=== PATIENT | female | born 1955 | race Caucasian/White ===

== ENCOUNTER → 2019-02-12 | Outpatient (CLI) | payer MEDICARE, MEDICAID ==
--- NOTE | 2019-02-12 18:59 | REP ---
MRI RIGHT SHOULDER: TECHNIQUE: Axial T2 fat sat, coronal oblique T1, T2 fat sat, post arthrogram axial T1 fat sat, proton density, coronal oblique T1 fat sat, T2 sat, sagittal oblique T2 fat sat, ABER T1 fat sat. There is scattered ill-defined high signal in supraspinatus tendon compatible with scattered mild tendinopathy. There is a focal partial undersurface tear of the distal end of the supraspinatus tendon. Other rotator cuff tendons are intact. There are mild hypertrophic degenerative changes of the acromioclavicular joint with a type 1 acromion. The biceps tendon is within the bicipital groove with mild surrounding fluid which may represent mild tenosynovitis. No abnormal signal is seen in the deltoid muscle. There appears to be a SLAP tear underlying the biceps labral complex. The adjacent biceps tendon also appears involved. Anterior labrum appears torn with lobulated septated paralabral cyst measuring about 14 x 5 mm. There appears to be a posterior labral tear as well. There is moderate chondromalacia of the glenohumeral joint with mild subchondral marrow edema in the glenoid. There is a mild joint effusion. IMPRESSION: Mild supraspinatus tendinopathy with focal partial undersurface tear of the distal end of the tendon. Mild hypertrophic degenerative changes acromioclavicular joint. Mild fluid surrounding the biceps tendon suggesting mild tenosynovitis. There appears to be a SLAP tear involving the biceps labral complex with the tear also involving the adjacent biceps tendon. There also appear to be anterior and posterior labral tears with an anterior inferior paralabral cyst, oval in shape with lobulated septated appearance. Moderate chondromalacia of the glenohumeral joint. Mild joint effusion. Unreviewed
== END ==
LOC: M RAD 14:31
PROVIDERS: ATTEND Orthopaedic Surgery Hand Surgery
DX: M75.41 Impingement syndrome of right shoulder (principal)

== ENCOUNTER 2019-04-29 10:59 | Day surgery (SDC) | payer MEDICARE, MEDICAID ==
[~2019-04-29] VITALS: Ht 154.9 cm; Wt 74.1 kg
[~2019-04-29 10:59] MED LIST: ACETAMINOPHEN 1000MG 100ML IV BTL (OFIRMEV) (J0131 PER 10MG) As Ordered ONE; AMIT25TA PO; BRONCHW PO; DOCU-129 PO; FERR32TA PO; GABA-845 PO; LEXA1TAB PO; LIDOCAINE 2% INJ 100 MG/5 ML SDV (FOR ANES.) As Ordered ONE; LR 1,000 ML IV ONE; ONDANSETRON 4MG/2ML VIAL (J2405) As Ordered ONE; PHENYLephrine HCL 500 MCG/5 ML (100MCG/ML) SYRINGE (J2370) As Ordered ONE; PRAM0.754 PO; ROCURONIUM BROMIDE 50 MG/5 ML VIAL As Ordered ONE; SUCR1ORA PO; SUGAMMADEX SODIUM 500 MG/5 ML VIAL (BRIDION) As Ordered ONE; VITA500079 PO; VITA500T40 PO; ceFAZolin SOD 2 GM in IV 1 EA IV ONE; dexameTHASONE 4 MG/ML 1ML VIAL (J1100) As Ordered ONE; ePHEDrine SULFATE 25 MG/5 ML(5MG/ML) SYRINGE As Ordered ONE; fentaNYL 250 MCG/5 ML INJECTION (J3010) As Ordered ONE; propofoL 200 MG/20 ML VIAL As Ordered ONE
[2019-04-29] MEDS ORDERED: ROPIvacaine 0.5% 30 ML INJECTION (J2795 PER 1MG) ONE (11:00)
[2019-04-29] MEDS ORDERED: dexameTHASONE 10 MG/1 ML VIAL PRES.FREE (J1100) ONE (11:00)
[2019-04-29] MEDS ORDERED: fentaNYL 100 MCG/2 ML INJECTION (J3010) As Ordered ONE (12:39)
[2019-04-29] MEDS ORDERED: MIDAZOLAM INJ 2 MG/2 ML VIAL (J2250) As Ordered ONE (12:39)
[2019-04-29] MEDS ORDERED: EPINEPHrine 1MG/ML INJ 30ML MD-VIAL As Ordered ONE (12:59)
[2019-04-29] MEDS ORDERED: SCOPOLAMINE 1MG TRANSDERMAL PATCH TOP ONE (13:00)
[2019-04-29] MEDS ORDERED: MIDAZOLAM INJ 2 MG/2 ML VIAL (J2250) IV ONE (13:30)
[2019-04-29] MEDS ORDERED: fentaNYL 100 MCG/2 ML INJECTION (J3010) IV ONE (13:30)
[2019-04-29] MEDS ORDERED: LABETALOL HCL 100 MG/20 ML VIAL As Ordered ONE (15:26)
[2019-04-29] MEDS ORDERED: hydrALAZINE INJ 20 MG/ML VIAL As Ordered ONE (15:43)
[2019-04-29] MEDS ORDERED: hydrALAZINE INJ 20 MG/ML VIAL IV PRN (15:45)
[2019-04-29] MEDS ORDERED: oxyCODONE 5MG TAB PO PRN ×3 (15:45→16:46)
[2019-04-29] MEDS ORDERED: LR 1,000 ML IV SCH (15:45)
[2019-04-29] MEDS ORDERED: ONDANSETRON 4MG/2ML VIAL (J2405) IV PRN (15:45)
[2019-04-29] MEDS ORDERED: fentaNYL 100 MCG/2 ML INJECTION (J3010) IV PRN (15:45)
[2019-04-29 17:15] VITALS: BP 132/65
--- NOTE | 2019-04-29 20:44 | RO ---
DATE OF PROCEDURE: 04/29/2019 PREOPERATIVE DIAGNOSIS: Right SLAP tear, right focal :09 rotator cuff tear and right impingement syndrome. POSTOPERATIVE DIAGNOSIS: Right SLAP tear, right focal rotator cuff tear and right impingement syndrome. In addition severe glenohumeral arthritis. PROCEDURE: Right open biceps tenodesis, arthroscopic rotator cuff repair, distal clavicle excision of approximately 1.1 cm, subacromial decompression and acromioplasty. SURGEON: Gordon Jaffe MD GRAVITY PROSPECTING OBSERVER HELPER: YOVANI Butt, who was essential for suture management and retraction. ANESTHESIA: General. PREOPERATIVE ANTIBIOTICS: 2 grams of Ancef. ESTIMATED BLOOD LOSS: 20 mL COMPLICATIONS: None. INDICATION: 64-year-old female who failed nonoperative modes of treatment. We discussed the risks and benefits of surgical intervention including but not limited to infection, damage to surrounding structures, incomplete relief and patient wished to proceed. DESCRIPTION OF PROCEDURE: Patient was taken back to the OR in supine position, underwent general anesthesia, then was positioned on the beach chair. Right arm was prepped and draped in the usual fashion. We then had a time-out confirming site, side and surgery. Once all in agreement we made a stab incision for the posterior portal. We then entered the glenohumeral joint. At which point we quickly identified the rotator interval and established our anterior portal, confirming with needle first then placing a 7 x 7 Arthrex cannula. At which point, we evaluated the joint. There was a large SLAP type 2 tear. There was stage 4 glenoid and humeral head arthritis along with an extremely synovitic joint and there was anterior leading edge full thickness rotator cuff tear. At this time, we decided to release the biceps tendon from the labral junction. We then debrided the labrum of all fraying edges with a shaver and a burner. We then evaluated the rotator cuff tear and used combination of burner and shaver to prep the rotator cuff tear itself along with the bone on the articular margin. We then entered the subacromial space. At which point we did a subacromial decompression, then used the bur for our acromioplasty of the anterior leading edge of the spur along with distal clavicle excision at the end of the anterior portal which we transferred to the subacromial space. We removed approximately 1.1 cm to allow decompression of the rotator cuff. We then evaluated the tear, debrided it further utilizing a shaver and used a shaver to expose the lateral cortex and prep the bone. At which point we used our punch for medial row 4.75 SwiveLock over the FiberTape. We did not even need to use a mallet , the bone was of such poor quality, once we entered the anchor the anchor was felt to be secure. We then passed the anterior and posterior limb of the tear which I measured to be about 21 cm. Once this was complete, we used the punch for the lateral cortex, once again did not require the use of a mallet in order to make our hole. We then loaded the lateral anchor. Once this was set into the bone, we reduced the tension both anterior and posterior limbs 4.75 SwiveLock. We felt that the cuff would reduce well without any dog ears and that bone had adequate fixation of the anchor. We then removed both the stay sutures, cut the FiberTape suture. At this point we debrided and irrigated the joint thoroughly, removed all bone debris. We then turned our attention to the open portion of the procedure. We made a separate incision on the anterior arm just medial to the cut. We carefully dissected through subcutaneous tissue, paying careful attention to superficial bleeding. We then retracted the pec laterally and superiorly, at which point we exposed the biceps tendon and we then used a combination of a Irina and tenotomies to free the biceps tendon from some adhesions and move the joint. We then used our Arthrex proximal biceps button kit. We used the FiberWire to pass the Jovanny needle and whip stitched the biceps tendon to the musculotendinous junction. We then passed the pin into the cortex using cortical. We loaded our button and then passed the button into the hole. We then secured it and tightened down the tendon. At which point we used a free needle to loop one of the sutures through the tendon itself and tie it down securely. At this point, we irrigated the wound thoroughly, closed with #2-0 Vicryl and all other wounds with #3-0 nylon. Placed a dressing. The patient was awakened and taken to post anesthesia care unit (PACU) in stable condition with a sling. POSTOPERATIVE PLAN: Patient will work on pain control. Will see her in the office in 2 weeks to discuss rehabilitation. She will work on gentle range of motion of her elbow and wrist in the meantime.
== END 2019-04-29 17:20 | disposition home or self-care (01) ==
LOC: M SDC 10:59
PROVIDERS: ATTEND Orthopaedic Surgery Hand Surgery
DX: M75.101 Unspecified rotator cuff tear or rupture of right shoulder, not specified as traumatic (principal); M75.41 Impingement syndrome of right shoulder; G43.909 Migraine, unspecified, not intractable, without status migrainosus; F41.9 Anxiety disorder, unspecified; F32.9 Major depressive disorder, single episode, unspecified; J44.9 Chronic obstructive pulmonary disease, unspecified; K21.9 Gastro-esophageal reflux disease without esophagitis; Z87.891 Personal history of nicotine dependence; Z79.899 Other long term (current) drug therapy; Z88.8 Allergy status to other drugs, medicaments and biological substances; Z91.018 Allergy to other foods
CPT/HCPCS: 23430; 29824; 29826; 29827; C1713; J0131; J0690; J1100; J2250; J2370; J2405; J2795; J3010

== ENCOUNTER 2019-05-26 08:25 | Day surgery (SDC) | payer MEDICARE, MEDICAID ==
[~2019-05-26] VITALS: Ht 154.9 cm; Wt 74.9 kg
[~2019-05-26 08:25] MED LIST changes: -ACETAMINOPHEN 1000MG 100ML IV BTL (OFIRMEV) (J0131 PER 10MG) As Ordered ONE; -LIDOCAINE 2% INJ 100 MG/5 ML SDV (FOR ANES.) As Ordered ONE; -ONDANSETRON 4MG/2ML VIAL (J2405) As Ordered ONE; -PHENYLephrine HCL 500 MCG/5 ML (100MCG/ML) SYRINGE (J2370) As Ordered ONE; -ROCURONIUM BROMIDE 50 MG/5 ML VIAL As Ordered ONE; -SUGAMMADEX SODIUM 500 MG/5 ML VIAL (BRIDION) As Ordered ONE; -dexameTHASONE 4 MG/ML 1ML VIAL (J1100) As Ordered ONE; -ePHEDrine SULFATE 25 MG/5 ML(5MG/ML) SYRINGE As Ordered ONE; -fentaNYL 250 MCG/5 ML INJECTION (J3010) As Ordered ONE; -propofoL 200 MG/20 ML VIAL As Ordered ONE
[2019-05-26] MEDS ORDERED: OXYC1TAB23 PO (08:51)
[2019-05-26] MEDS ORDERED: dexameTHASONE 4 MG/ML 1ML VIAL (J1100) As Ordered ONE (09:06)
[2019-05-26] MEDS ORDERED: LIDOCAINE 2% INJ 100 MG/5 ML SDV (FOR ANES.) As Ordered ONE (09:06)
[2019-05-26] MEDS ORDERED: ONDANSETRON 4MG/2ML VIAL (J2405) As Ordered ONE (09:06)
[2019-05-26] MEDS ORDERED: propofoL 200 MG/20 ML VIAL As Ordered ONE (09:06)
[2019-05-26] MEDS ORDERED: MIDAZOLAM INJ 2 MG/2 ML VIAL (J2250) As Ordered ONE (09:09)
[2019-05-26] MEDS ORDERED: fentaNYL 100 MCG/2 ML INJECTION (J3010) As Ordered ONE (09:10)
[2019-05-26] MEDS ORDERED: SCOPOLAMINE 1MG TRANSDERMAL PATCH TOP ONE (09:30)
[2019-05-26] MEDS ORDERED: METOCLOPRAMIDE INJ 10MG/2ML VIAL (J2765) As Ordered ONE (10:37)
[2019-05-26] MEDS ORDERED: ROCURONIUM BROMIDE 50 MG/5 ML VIAL As Ordered ONE (10:37)
[2019-05-26] MEDS ORDERED: SUGAMMADEX SODIUM 500 MG/5 ML VIAL (BRIDION) As Ordered ONE (11:17)
--- NOTE | 2019-05-26 11:52 | REP ---
Clinical: Retrograde pyelogram. Technique: Two intraoperative fluoroscopic images of the abdomen/pelvis. Findings: Final image demonstrates right ureteral stent in satisfactory appearing position. Total fluoroscopic time 13 seconds. Impression: Status post right ureteral stent placement. Electronically Signed by Rony Vásquez MD 05/26/2019 11:43 A
[2019-05-26] MEDS ORDERED: NORC1TAB7 PO (11:56)
[2019-05-26] MEDS ORDERED: SULF1TAB93 PO (11:56)
[2019-05-26] MEDS ORDERED: PHEN-594 PO (11:56)
[2019-05-26] MEDS ORDERED: fentaNYL 100 MCG/2 ML INJECTION (J3010) IV PRN (12:00)
[2019-05-26] MEDS ORDERED: oxyCODONE 5MG TAB PO PRN (12:00)
[2019-05-26] MEDS ORDERED: LR 1,000 ML IV SCH (12:00)
[2019-05-26] MEDS ORDERED: ONDANSETRON 4MG/2ML VIAL (J2405) IV PRN (12:00)
--- NOTE | 2019-05-26 13:06 | RO ---
DATE OF PROCEDURE: 05/26/2019 PREOPERATIVE DIAGNOSIS: Right renal stones. POSTOPERATIVE DIAGNOSIS: Right renal stones. PROCEDURE PERFORMED: Right ureteroscopy with laser dusting of stones and stent placement. SURGEON: Sha Hensley MD MARKETING OPERATIONS MANAGER: ANESTHESIA: General. INDICATION: This 64-year-old lady presented with symptomatic right renal stones. She has a past history of gastrointestinal (GI) bypass surgery and has had many episodes of stones. The stones have been resistant to eswl in the past. She has required multiple ureteroscopic procedures. She does actually have bilateral stones on CT scan, but the largest stone volume is on the right on which side she is also symptomatic. DESCRIPTION OF PROCEDURE: After obtaining informed consent from the patient, she was taken to the operating room, where after induction of adequate anesthetic, she was prepped and draped in the usual manner. The 22-English diagnostic cystoscope was advanced into the bladder and the bladder inspected. No stones or abnormalities were noted. The ureteral orifices were in orthotopic position. A wire was negotiated to the right kidney under fluoroscopic control. We attempted to pass the 12/14 ureteral access sheath. This would not pass. The obturator also would not readily pass beyond the midureter. We discontinued this attempt and thereafter passed the Olympus flexible ureterorenoscope without difficulty to the kidney. The calices in renal pelvis all carefully inspected. Two large stones were noted within the right renal pelvis. We used the 272-micron Holmium laser fiber and fragmented the stones into sand-sized pieces. After dusting the stones thoroughly, we carefully reinspected all calices in the renal pelvis. No significant injuries were noted. No significant remaining fragments were noted. The ureter was then inspected carefully, and no significant ureteral injury was noted. We re-passed the safety guidewire and positioned a 6-English Hilbert stent over the wire fluoroscopically in the kidney and bladder with the string left attached. Distal stent position confirmed endoscopically. The procedure was concluded and the patient taken to recovery in satisfactory condition. COMPLICATIONS: None. BLOOD LOSS: Less than 20 mL. DISPOSITION: The patient is dismissed home on [place] 5, #15, Septra DS on by mouth nightly, Pyridium 200 three times a day as needed dysuria. Followup to be in 1 week for stent removal with string. Diet as tolerated. Activity light. MTDD
[2019-05-26 14:45] VITALS: BP 136/72
== END 2019-05-26 15:00 | disposition home or self-care (01) ==
LOC: M SDC 08:25
PROVIDERS: ATTEND Urology
DX: N20.0 Calculus of kidney (principal); G47.33 Obstructive sleep apnea (adult) (pediatric); K21.9 Gastro-esophageal reflux disease without esophagitis; R94.31 Abnormal electrocardiogram [ECG] [EKG]; M19.90 Unspecified osteoarthritis, unspecified site; J67.0 Farmer's lung; Z98.890 Other specified postprocedural states; F41.9 Anxiety disorder, unspecified; F32.9 Major depressive disorder, single episode, unspecified; Z98.84 Bariatric surgery status; Z88.8 Allergy status to other drugs, medicaments and biological substances; Z91.018 Allergy to other foods; Z79.899 Other long term (current) drug therapy; Z79.891 Long term (current) use of opiate analgesic
CPT/HCPCS: 52356; 74420; C1769; C1894; C2617; J0690; J1100; J2250; J2405; J2765; J3010

== ENCOUNTER 2019-05-31 23:18 | Inpatient (IN) | payer MEDICARE, MEDICAID ==
[~2019-05-31] VITALS: Ht 154.9 cm; Wt 74.6 kg
[~2019-05-31 23:18] MED LIST changes: -LR 1,000 ML IV ONE; +NORC1TAB7 PO; +OXYC1TAB23 PO; +PHEN-594 PO; +SULF1TAB93 PO; -ceFAZolin SOD 2 GM in IV 1 EA IV ONE
[2019-06-01] MEDS ORDERED: MOM 30ML SUSPENSION UDC PO PRN (06:45)
[2019-06-01] MEDS ORDERED: ACETAMINOPHEN TAB 650MG DOSE (2X325MG) PO PRN (06:45)
[2019-06-01] MEDS ORDERED: MAALOX 30 ML SUSP *UDC PO PRN (06:45)
[2019-06-01 07:00] VITALS: BP 124/67
[2019-06-01] MEDS ORDERED: BACT800T5 PO (08:08)
[2019-06-01] MEDS ORDERED: PHEN-594 PO (08:08)
[2019-06-01] MEDS ORDERED: SUCR1TAB56 PO (08:08)
[2019-06-01] MEDS ORDERED: MIRA0.12 PO (08:08)
[2019-06-01] MEDS ORDERED: GABA-1171 PO (08:08)
[2019-06-01] MEDS ORDERED: LEVO1INJ27 IV (08:11)
[2019-06-01 08:22] LABS: ALBUMIN 2.7 GM/DL (3.2-5.2); ALT/SGPT 15 U/L (12-78); BILIRUBIN,TOTAL 0.3 MG/DL (0.2-1.0); BLOOD UREA NITROGEN 10 MG/DL (7-18); CARBON DIOXIDE LEVEL 21 MEQ/L (21-32); CHLORIDE LEVEL 112 MEQ/L (98-107); CREATININE FOR GFR 0.64 MG/DL (0.55-1.30); GLOMERULAR FILTRATION RATE > 60.0 (>45); GLUCOSE, FASTING 89 MG/DL (70-100); MAGNESIUM LEVEL 2.1 MG/DL (1.8-2.4); POTASSIUM SERUM 4.3 MEQ/L (3.5-5.1); SODIUM LEVEL 141 MEQ/L (136-145); TOTAL PROTEIN 6.1 GM/DL (6.4-8.2)
[2019-06-01] MEDS ORDERED: PERCOCET 5MG/325MG TAB PO PRN (08:45)
[2019-06-01] MEDS ORDERED: cefTRIAXone SOD 1 GM in D5W MINI-BAG PLUS 50 ML IV SCH (09:00)
[2019-06-01] MEDS ORDERED: DOCUSATE SODIUM 100 MG CAP PO SCH ×2 (09:00→21:00)
[2019-06-01] MEDS: MULTIVITAMINS/MINERALS THERAP 1 TAB PO SCH (09:54)
[2019-06-01] MEDS: GABAPENTIN 100 MG CAP PO SCH ×2 (09:54→20:32)
[2019-06-01] MEDS: VITAMIN D 1,000 INTERNATIONAL UNITS TABLET PO SCH (09:54)
[2019-06-01] MEDS: SUCRALFATE 1 GM TAB PO SCH ×2 (09:55→20:33)
[2019-06-01] MEDS: CYANOCOBALAMIN 500 MCG TAB PO SCH (09:55)
[2019-06-01] MEDS: FERROUS GLUCONATE 324 MG TAB PO SCH (09:55)
[2019-06-01] MEDS: ESCITALOPRAM OXALATE 10 MG TAB (LEXAPRO) PO SCH (09:55)
[2019-06-01] MEDS ORDERED: HYDROMORPHONE HCL 0.5 MG/ 0.5 ML SYRINGE (J1170 PER 1) IV PRN ×2 (10:15)
[2019-06-01 10:39] LABS: BASO # 0.1 10^3/uL (0.0-0.2); BASO % 0.7 % (0.0-1.0); EOS # 0.2 10^3/uL (0.0-0.5); EOS % 2.8 % (0.0-3.0); HEMATOCRIT 36.6 % (36.0-47.0); HEMOGLOBIN 11.8 g/dl (12.0-15.5); LYMPH # 2.1 10^3/uL (1.5-5.0); LYMPH % 28.2 % (24.0-44.0); MEAN CORPUSCULAR HEMOGLOBIN 30.9 pg (27.0-33.0); MEAN CORPUSCULAR HGB CONC 32.2 g/dl (32.0-36.5); MEAN CORPUSCULAR VOLUME 95.8 fl (80.0-96.0); MONO # 0.6 10^3/uL (0.0-0.8); MONO % 8.1 % (0.0-5.0); NEUTROPHILS # 4.5 10^3/uL (1.5-8.5); NEUTROPHILS % 59.9 % (36.0-66.0); PLATELET COUNT, AUTOMATED 275 10^3/uL (150-450); RED BLOOD COUNT 3.82 10^6/uL (4.00-5.40); WHITE BLOOD COUNT 7.5 10^3/uL (4.0-10.0)
--- NOTE | 2019-06-01 10:54 | HPEPDOC ---
General Date of Admission Jun 01, 2019 at 06:34 Date of Service: Jun 01, 2019 Chief Complaint The patient is a 64-year-old female Who was transferred from outside facility after she had reported right abdominal discomfort and possible displacement of her right ureteral stent History of Present Illness Patient is a 74-year-old female with a PMHx of [place] lung, GERD, Nephrolithiasis s/p R ureteral stent (05/25), Anxiety and Depression who presented to the [facility] as a direct admission from outside facility. Patient reported that yesterday 05/30, afternoon she began to experience right- sided abdominal pain and may have unintentionally hold out her right ureteral stent via string. Patient was reporting excruciating pain and to the ER for further evaluation. Patient had received Dilaudid for pain control while there, as well as CT imaging. Patient was ultimately transferred to [facility] for evaluation by urology. Currently patient denies any chest pain, shortness of breath, palpitations, nausea, vomiting, any active abdominal pain at this time, diarrhea, or urinary discomfort. She denies any fevers or chills over the last 2 days. Patient reports that her appetite is fair. Denies any significant changes in her weight. Home Medications Scheduled Amitriptyline HCl (Amitriptyline HCl) 25 Mg Tablet, 25 MG PO QHS, (Reported) Cholecalciferol (Vitamin D3) (Vitamin D3) 5,000 Unit Tab.rapdis, 5,000 UNIT PO DAILY, (Reported) Cyanocobalamin (Vitamin B-12) (Vitamin B-12) 500 Mcg Tablet, 500 MCG PO DAILY, (Reported) Docusate Sodium (Stool Softener) 100 Mg Capsule, 200 MG PO QHS, (Reported) Escitalopram Oxalate (Lexapro) 10 Mg Tablet, 10 MG PO DAILY, (Reported) Ferrous Gluconate (Ferrous Gluconate) 324 Mg Tablet, 324 MG PO DAILY, (Reported) Gabapentin (Gabapentin) 100 Mg Capsule, 100 MG PO BID, (Reported) Levofloxacin in Dextrose 5 % (Levofloxacin 750 mg/150 ml-D5w) 750 Mg/150 Ml Piggyback, 750 MG IV ONCE, (Reported) RECEIVED AT [facility] Multivitamin (Chewable-Pierce) 1 Each Tab.chew, 1 CHW PO DAILY, (Reported) Pramipexole Di-HCl (Mirapex) 0.125 Mg Tablet, 0.125 MG PO QHS, (Reported) Sucralfate (Sucralfate) 1 Gm Tablet, 1 GM PO BID, (Reported) Sulfamethoxazole/Trimethoprim (Bactrim Ds Tablet) 1 Each Tablet, 1 TAB PO DAILY, (Reported) FILLED 05/26/19 FOR 7 DAYS Scheduled PRN Oxycodone HCl/Acetaminophen (Oxycodone-Acetaminophen 5-325) 1 Each Tablet, 1 TAB PO Q6H PRN for PAIN, (Reported) Phenazopyridine HCl (Phenazopyridine HCl) 200 Mg Tablet, 200 MG PO TID PRN for BLADDER SPASM, (Reported) Allergies Coded Allergies: fluoxetine (Verified Allergy, Intermediate, rash, itching, 05/26/19) tomato (Verified Allergy, Intermediate, TOMATO SEEDS - HIVES, 05/26/19) Past Medical History Medical History Lingle lung, GERD, Nephrolithiasis s/p R ureteral stent (05/25), Anxiety and Depression Surgical History Gastric bypass R wrist / arm fracture s/p ORIF Carpal tunnel release surgery balateraly Lung biopsy Right knee surgery x 2 Kidney stone Family History - Mother with a history of heart problems - Father with history of lung cancer and bone cancer Social History - Denies the use of illicit drugs; quit smoking 25 years ago, but smnoker of 30 years at 1 ppd, reports social alcohol use - Denies recent travel or sick contacts - Lives with boyfriend - Occupation; patient works on the farm Review of Systems Other systems 10 point review of systems complete, all negative otherwise stated in HPI Vital Signs - Vitals: BP 124/67, HR 90, RR 17, Sat 91%RA, Temp 98.6F - General: Lying in bed, No acute distress, Speaking in full sentences, AAOx3 - HEENT: NC, AT, PERRLA - CVS: RRR, +S1S2 - Lungs: Fair air entry bilaterally, No appreciable wheezing / rales / rhonchi - Abdomen: Soft, Non-distended, Right flank tenderness - Extremities: No lower extremity edema, No calf tenderness - Neuro: No focal motor or sensory deficit - Skin: No visible rashes Laboratory Data Labs 24H Laboratory Tests 2 06/01/19 07:44: Anion Gap 8, Glomerular Filtration Rate > 60.0, Lactic Acid Level 0.9, Calcium Level 8.0L, Magnesium Level 2.1, Total Bilirubin 0.3, Aspartate Amino Transf (A ST/SGOT) 14, Alanine Aminotransferase (ALT/SGPT) 15, Alkaline Phosphatase 69, Total Protein 6.1L, Albumin 2.7L, Albumin/Globulin Ratio 0.79L 06/01/19 10:27: Immature Granulocyte % (Auto) 0.3, Neutrophils (%) (Auto) 59.9, Lymphocytes (%) (Auto) 28.2, Monocytes (%) (Auto) 8.1H, Eosinophils (%) (Auto) 2.8, Basophils (%) (Auto) 0.7, Neutrophils # (Auto) 4.5, Lymphocytes # (Auto) 2.1, Monocytes # (Auto) 0.6, Eosinophils # (Auto) 0.2, Basophils # (Auto) 0.1, Nucleated Red Blood Cells % (auto) 0.0 CBC/BMP Laboratory Tests 06/01/19 07:44 06/01/19 10:27 Microbiology Microbiology 06/01/19 Blood Culture, Received Pending 06/01/19 Blood Culture, Received Pending Plan / VTE VTE Prophylaxis Ordered?: Yes Plan Plan Right-sided abdominal pain - likely 2/2 dislodged R ureteral stent - Patient was transferred from outside facility after she had unintentionally dislodged her right ureteral stent - Currently, patient does report some right-sided flank pain. Physical does reveal right flank tenderness - Hemodynamically stable and afebrile - No lactic acidosis; CBC pending - Will get ultrasound to evaluate for hydronephrosis - Urine cultures and blood cultures were collected at outside facility - c/w Ceftriaxone (Day #2) - c/w pain control PRN with diluadid - Called urology on consultation; case has been discussed and will evaluate at bedside today Lingle lung - No evidence of exacerbation Nephrolithiasis - s/p R ureteral stent (05/25) - See above Anxiety and Depression - c/w Amitriptyline and Escitalopram Gastric bypass with Vitamin deficiency - c/w Vitamin D, B12, Multivitamin supplementation RLS - c/w Pramipexole Neuropathy - c/w Gabapentin GERD - c/w Carafate DVT prophylaxis - Will start Heparin DAVID ZULUAGA MD Jun 01, 2019 10:54
[2019-06-01] MEDS ORDERED: D5W/0.45% SODIUM CHLORIDE 1,000 ML IV SCH (11:45)
--- NOTE | 2019-06-01 12:47 | ECGEPIP ---
[facility] Test Date: 2019-06-01 Pat Name: RADHA MONTIEL Department: Room: [place] [address] Gender: Female Food Safety Manager: JACKIE : 1955 Requested By: DAVID ZULUAGA Order Number: [id number] Reading MD: Isai Anglin Measurements Intervals [place] Rate: 73 P: 52 SD: 156 QRS: -29 QRSD: 144 T: 12 QT: 430 QTc: 476 Interpretive Statements SINUS RHYTHM LEFT BUNDLE BRANCH BLOCK NO PRIOR TRACING IN THE SYSTEM Electronically Signed on 06-01-2019 12:47:27 EDT by Isai Anglin
--- NOTE | 2019-06-01 13:59 | SMCUROLCON ---
Urology Consultation General Date of Consultation 06/01/19 Reason For Consultation This patient is seen for Uti, Dislodged Nephrostomy Tube. History of Present Illness This is a 64 y/o F w/ a PMH significant for [place] lung, GERD, and nephrolithiasis s/p R ureteroscopy w/ laser lithotripsy and R stent placement on 05/26/19, admitted to the hospital for worsening R flank pain after inadvertently pulling her stent out yesterday. She notes that she accidentally pulled on the string of her stent earlier in the day yesterday and when she subsequently voided, the entire stent came out. After that she began having intolerable R flank pain which prompted her to go [facility] ER. There they were unable to control her pain w/ PO pain medication. She was therefore transferred to [facility] for further care and possible urologic care. She notes that she still has significant pain at this time and just received a dose of dilaudid for this. She has had mild nausea, but no vomiting. She denies dysuria. She denies fevers or chills. Past Medical History Medical History see HPI Surgical Hstory gastric bypass R knee surgeries x2 R rotator cuff b/l carpal tunnel surgery several kidney stone surgeries Medications Current Medications Current Medications Medications (Trade) Dose Ordered Sig/Cassandra Route PRN Reason Start Time Stop Time Status Last Admin Dose Admin Acetaminophen (Tylenol Tab) 650 mg Q4H PRN PO PAIN OR FEVER 06/01/19 06:45 Al Hydrox/Mg Hydrox/Simethicone (Mylanta) 30 ml DAILY PRN PO DYSPEPSIA 06/01/19 06:45 Amitriptyline HCl (Elavil) 25 mg QHS PO 06/01/19 21:00 Ceftriaxone Sodium 1 gm/ Dextrose 50 ml @ 100 mls/hr Q24H IV 06/01/19 09:00 06/01/19 09:55 Cyanocobalamin (Vitamin B12) 500 mcg DAILY PO 06/01/19 09:00 06/01/19 09:55 Dextrose/Sodium Chloride 1,000 ml @ 60 mls/hr [id number] IV 06/01/19 11:45 06/01/19 12:36 Docusate Sodium (Colace) 100 mg BID PO 06/01/19 09:00 06/01/19 08:33 DC Docusate Sodium (Colace) 200 mg QHS PO 06/01/19 21:00 Escitalopram Oxalate (Lexapro) 10 mg DAILY PO 06/01/19 09:00 06/01/19 09:55 Ferrous Gluconate (Fergon) 324 mg DAILY PO 06/01/19 09:00 06/01/19 09:55 Gabapentin (Neurontin) 100 mg BID PO 06/01/19 09:00 06/01/19 09:54 Heparin Sodium (Porcine) (Heparin) 5,000 units Q8H SQ 06/01/19 14:00 Home Med (Med Rec Complete!) ASDIRECTED XX 06/01/19 08:15 06/01/19 08:33 DC Hydromorphone HCl (Dilaudid) 0.2 mg Q3HP PRN IV MILD PAIN (PS 1-4) 06/01/19 10:15 Hydromorphone HCl (Dilaudid) 0.4 mg Q3HP PRN IV MODERATE PAIN (PS 5-7) 06/01/19 10:15 06/01/19 10:33 Ketorolac Tromethamine (ToRADol) 15 mg Q6H IV 06/01/19 13:45 06/06/19 13:44 UNV Magnesium Hydroxide (Milk Of Magnesia) 30 ml DAILY PRN PO CONSTIPATION 06/01/19 06:45 Multivitamins (Theragram-M) 1 tab DAILY PO 06/01/19 09:00 06/01/19 09:54 Oxycodone/ Acetaminophen (Percocet 5mg/ 325mg Tablet) 1 tab Q6H PRN PO PAIN 06/01/19 08:45 06/01/19 08:48 Pramipexole Dihydrochloride (Mirapex) 0.125 mg QHS PO 06/01/19 21:00 Sucralfate (Carafate) 1 gm BID PO 06/01/19 09:00 06/01/19 09:55 Tamsulosin HCl (Flomax) 0.4 mg DAILY PO 06/01/19 13:45 UNV Vitamin D (Vitamin D) 5,000 units DAILY PO 06/01/19 09:00 06/01/19 09:54 Allergies Allergies: Coded Allergies: fluoxetine (Verified Allergy, Intermediate, rash, itching, 05/26/19) tomato (Verified Allergy, Intermediate, TOMATO SEEDS - HIVES, 05/26/19) Review of Systems Constitutional: Denies: Fever, Chills, Sweats Skin: Denies: Rash, Lesions, Breakdown, Nail Changes Pulmonary: Denies: Dyspnea, Cough Cardiovascular: Denies Chest Pain, Denies Palpitations Gastrointestinal: Reports: Abdominal Pain (R lower abd pain) Genitourinary: Reports: Incontinence; Denies: Dysuria, Hematuria Musculoskeletal: Reports: Back Pain (R flank pain) Neurological: Reports: Weakness, Numbness Psych: Reports: Mood Normal Physical Examination General Exam: Alert, Cooperative, No Acute Distress Chest Exam: Normal air movement Heart Exam: Rate Normal Abdomen Exam: Soft, Tenderness (mild to moderate RLQ) Skin Exam: Nl turgor and temperature Neuro Exam: Normal Speech Psych Exam: Mental status NL, Mood NL Vital Signs/I&O Vital Signs Date Time Temp Pulse Resp B/P (MAP) Pulse Ox O2 Delivery O2 Flow Rate FiO2 06/01/19 10:45 20 Room Air 06/01/19 07:00 98.6 90 124/67 (86) 91 Laboratory Data 24H Labs Laboratory Tests 2 06/01/19 07:44: Anion Gap 8, Glomerular Filtration Rate > 60.0, Lactic Acid Level 0.9, Calcium Level 8.0L, Magnesium Level 2.1, Total Bilirubin 0.3, Aspartate Amino Transf (AST/SGOT) 14, Alanine Aminotransferase (ALT/SGPT) 15, Alkaline Phosphatase 69, Total Protein 6.1L, Albumin 2.7L, Albumin/Globulin Ratio 0.79L 06/01/19 10:27: Immature Granulocyte % (Auto) 0.3, Neutrophils (%) (Auto) 59.9, Lymphocytes (%) (Auto) 28.2, Monocytes (%) (Auto) 8.1H, Eosinophils (%) (Auto) 2.8, Basophils (%) (Auto) 0.7, Neutrophils # (Auto) 4.5, Lymphocytes # (Auto) 2.1, Monocytes # (Auto) 0.6, Eosinophils # (Auto) 0.2, Basophils # (Auto) 0.1, Nucleated Red Blood Cells % (auto) 0.0 CBC/BMP Laboratory Tests 06/01/19 07:44 06/01/19 10:27 Microbiology Microbiology 06/01/19 Blood Culture, Received Pending 06/01/19 Blood Culture, Received Pending Assessment This is a 64 y/o F who is s/p a R ureteroscopy w/ laser lithotripsy and R stent placement on 05/26/19, admitted to the hospital for intolerable R flank pain after inadvertently pulling her stent out yesterday. I reviewed her CT A/P. It was notable for small stone debris in the R kidney and in the distal ureter as well as moderate R hydroureteronephrosis down to the level of the bladder. The tiny stones in the distal R ureter do not appear to be the source of obstruction. The hydro is therefore likely due to ureteral edema from her recent surgery. I reassured the patient and explained that this will resolve and her pain will improve when this happens. Her urine culture from [facility] was also reviewed and it resulted w/ no growth. Plan - start scheduled toradol to help w/ pain and inflammation - start flomax - rocephin d/c'd since urine culture was negative - ok for regular diet - no plan for surgery as I anticipate the hydro will improve as the R ureteral edema resolves - will follow ALYSSA CHAPMAN MD Jun 01, 2019 13:59
[2019-06-01 14:00] VITALS: BP 129/71
[2019-06-01] MEDS: KETOROLAC 30 MG/ML VIAL (J1885) IV SCH ×2 (14:31→20:32)
[2019-06-01] MEDS: HEPARIN SOD (PORCINE) 5000 UNITS/ML VIAL (J1644 PER 1000UNITS) SQ SCH ×2 (14:31→22:08)
[2019-06-01] MEDS: TAMSULOSIN 0.4 MG CAP PO SCH (14:37)
[2019-06-01] MEDS ORDERED: AMITRIPTYLINE 25 MG TAB PO SCH (21:00)
[2019-06-01] MEDS ORDERED: PRAMIPEXOLE (MIRAPEX) 0.125 MG TAB PO SCH (21:00)
[2019-06-01 22:00] VITALS: BP 124/68
[2019-06-02] MEDS: KETOROLAC 30 MG/ML VIAL (J1885) IV SCH ×2 (02:22→07:58)
[2019-06-02] MEDS: HEPARIN SOD (PORCINE) 5000 UNITS/ML VIAL (J1644 PER 1000UNITS) SQ SCH (05:45)
[2019-06-02 06:00] VITALS: BP 126/69
[2019-06-02 06:08] LABS: BASO # 0.1 10^3/uL (0.0-0.2); EOS # 0.3 10^3/uL (0.0-0.5); HEMATOCRIT 34.4 % (36.0-47.0); LYMPH # 2.1 10^3/uL (1.5-5.0); LYMPH % 42.3 % (24.0-44.0); MEAN CORPUSCULAR HEMOGLOBIN 30.6 pg (27.0-33.0); MEAN CORPUSCULAR VOLUME 95.8 fl (80.0-96.0); MONO # 0.4 10^3/uL (0.0-0.8); MONO % 7.8 % (0.0-5.0); NEUTROPHILS % 41.7 % (36.0-66.0); PLATELET COUNT, AUTOMATED 251 10^3/uL (150-450); RED BLOOD COUNT 3.59 10^6/uL (4.00-5.40); WHITE BLOOD COUNT 4.9 10^3/uL (4.0-10.0)
[2019-06-02 06:25] LABS: BLOOD UREA NITROGEN 14 MG/DL (7-18); CALCIUM LEVEL 8.1 MG/DL (8.8-10.2); CARBON DIOXIDE LEVEL 26 MEQ/L (21-32); CHLORIDE LEVEL 109 MEQ/L (98-107); CREATININE FOR GFR 0.68 MG/DL (0.55-1.30); GLOMERULAR FILTRATION RATE > 60.0 (>45); GLUCOSE, FASTING 82 MG/DL (70-100); MAGNESIUM LEVEL 2.2 MG/DL (1.8-2.4); POTASSIUM SERUM 3.8 MEQ/L (3.5-5.1); SODIUM LEVEL 141 MEQ/L (136-145)
--- NOTE | 2019-06-02 07:25 | REP ---
Clinical: Displaced renal stent. Technique: Real time okeefe scale ultrasound examination using curved array transducer. Findings: The right kidney is normal in contour, size, parenchymal echogenicity and reniform shape measuring 11.6 x 4.6 x 5.4 cm with evidence for hydroureteronephrosis and nephrolithiasis. No right ureteral stent is identified. Bladder is collapsed and without evidence for stent. Left kidney is normal in contour, size, parenchymal echogenicity and reniform shape measuring 10.4 x 4.9 x 4.4 cm with nonobstructing intrarenal calculi measuring up to 5 mm and no evidence for hydroureteronephrosis. Impression: 1. Right kidney demonstrates hydroureteronephrosis and intrarenal calculi without evidence for stent. 2. Left kidney demonstrates nephrolithiasis without hydronephrosis. Electronically Signed by Rony Vásquez MD 06/01/2019 09:25 A
[2019-06-02] MEDS: CYANOCOBALAMIN 500 MCG TAB PO SCH (07:58)
[2019-06-02] MEDS: FERROUS GLUCONATE 324 MG TAB PO SCH (07:58)
[2019-06-02] MEDS: VITAMIN D 1,000 INTERNATIONAL UNITS TABLET PO SCH (07:58)
[2019-06-02] MEDS: SUCRALFATE 1 GM TAB PO SCH (07:58)
[2019-06-02] MEDS: TAMSULOSIN 0.4 MG CAP PO SCH (07:59)
[2019-06-02] MEDS: ESCITALOPRAM OXALATE 10 MG TAB (LEXAPRO) PO SCH (07:59)
[2019-06-02] MEDS: MULTIVITAMINS/MINERALS THERAP 1 TAB PO SCH (07:59)
[2019-06-02] MEDS: GABAPENTIN 100 MG CAP PO SCH (07:59)
[2019-06-02] MEDS ORDERED: KETO10TAB PO (08:01)
[2019-06-02] MEDS ORDERED: FLOM0.4C39 PO (08:01)
--- NOTE | 2019-06-02 09:27 | IPNPDOC ---
Subjective Review oF Systems Chief Complaint The patient is a 64-year-old female admitted with a reason for visit of Uti, Dislodged Nephrostomy Tube. Events since Last Encounter No acute events o/n. Patient notes her flank pain is much better. She has not required any narcotics since starting toradol. No n/v. No f/c/ns. Objective Physical Examination General Exam: Alert, Cooperative ABDOMEN EXAM: BS Hypoactive, Soft, Mass; No: Tenderness Skin Exam: Nl turgor and temperature Neuro Exam: Normal Speech Psych Exam: Mental status NL, Mood NL Vital Signs/I&O Vital Signs Date Time Temp Pulse Resp B/P (MAP) Pulse Ox O2 Delivery O2 Flow Rate FiO2 06/02/19 06:00 96.8 72 15 126/69 (88) 93 Room Air I&O- Last 24 Hours up to 6 AM 06/02/19 06:00 Intake Total 780 ml Output Total 750 ml Balance 30 ml Laboratory Data Labs 24H Laboratory Tests 2 06/01/19 10:27: Immature Granulocyte % (Auto) 0.3, Neutrophils (%) (Auto) 59.9, Lymphocytes (%) (Auto) 28.2, Monocytes (%) (Auto) 8.1H, Eosinophils (%) (Auto) 2.8, Basophils (%) (Auto) 0.7, Neutrophils # (Auto) 4.5, Lymphocytes # (Auto) 2.1, Monocytes # (Auto) 0.6, Eosinophils # (Auto) 0.2, Basophils # (Auto) 0.1, Nucleated Red Blood Cells % (auto) 0.0 06/02/19 05:52: Immature Granulocyte % (Auto) 0.2, Neutrophils (%) (Auto) 41.7, Lymphocytes (%) (Auto) 42.3, Monocytes (%) (Auto) 7.8H, Eosinophils (%) (Auto) 7.0H, Basophils (%) (Auto) 1.0, Neutrophils # (Auto) 2.0, Lymphocytes # (Auto) 2.1, Monocytes # (Auto) 0.4, Eosinophils # (Auto) 0.3, Basophils # (Auto) 0.1, Nucleated Red Blood Cells % (auto) 0.0, Anion Gap 6L, Glomerular Filtration Rate > 60.0, Calcium Level 8.1L, Magnesium Level 2.2 CBC/BMP Laboratory Tests 06/01/19 10:27 06/02/19 05:52 Microbiology Microbiology 06/01/19 Blood Culture, Received Pending 06/01/19 Blood Culture - Preliminary, Resulted No growth after 24 hours . All specim... Assessment/Plan Date Seen The patient was seen on 06/02/19. Patient Summary This is a 64 y/o F who is s/p a R ureteroscopy w/ laser lithotripsy and R stent placement on 05/26/19, admitted to the hospital for intolerable R flank pain after inadvertently pulling her stent out on Sunday. She is doing much better this morning w/ minimal pain. Plan/VTE VTE Prophylaxis Ordered?: Yes VTE Exclusion Mechanical Proph: N/A:VTE Prophy Ordered VTE Exclusion Pharmacological: N/A:VTE Prophy Ordered Plan - ok for discharge home - would give toradol to take prn (she can take this in addition to the norco she has at home prn) - recommend she stay on flomax 0.4mg qd for at least 2 wks - my office will call to reschedule her f/u ALYSSA CHAPMAN MD Jun 02, 2019 09:27
--- NOTE | 2019-06-02 09:30 | DS.PDOC ---
Discharge Summary General Date of Admission Jun 01, 2019 at 06:34 Date of Discharge 06/02/2019 Discharge Summary PROCEDURES PERFORMED DURING STAY: [None]. ADMITTING DIAGNOSES / DISCHARGE DIAGNOSES: Right-sided abdominal pain - likely 2/2 dislodged R ureteral stent Liver hypodensity [place] lung Nephrolithiasis Anxiety and Depression Gastric bypass with Vitamin deficiency RLS Neuropathy GERD DVT prophylaxis COMPLICATIONS/CHIEF COMPLAINT: Transferred from [place] for dislodged right ureteral stent HISTORY OF PRESENT ILLNESS: Patient is a 74-year-old female with a PMHx of [place] lung, GERD, Nephrolithiasis s/p R ureteral stent (05/25), Anxiety and Depression who presented to the [facility] as a direct admission from outside facility. Patient reported that yesterday 05/30, afternoon she began to experience right- sided abdominal pain and may have unintentionally hold out her right ureteral stent via string. Patient was reporting excruciating pain and to the ER for further evaluation. Patient had received Dilaudid for pain control while there, as well as CT imaging. Patient was ultimately transferred to [facility] for evaluation by urology. HOSPITAL COURSE: Right-sided abdominal pain - likely 2/2 dislodged R ureteral stent - Patient was transferred from outside facility after she had unintentionally dislodged her right ureteral stent - Currently has been tolerating a diet, no nausea / vomiting, pain controlled - Remains hemodynamically stable and afebrile - No lactic acidosis; No leukocytosis - CT scan appreciated - Renal US 06/01: 1. Right kidney demonstrates hydroureteronephrosis and intrarenal calculi without evidence for stent. 2. Left kidney demonstrates nephrolithiasis without hydronephrosis. - Urine cultures have been reported negative at [place] - s/p Ceftriaxone (3 day course ) - c/w pain contro; with Ketoralac - Urology on consultation; appreciate their input Liver hypodensity - CT scan noted - Results of CT scan have been informed to the patient; verbalized understanding - Will have outpatient follow up with PCP within 7 days. [place] lung - No evidence of exacerbation Nephrolithiasis - s/p R ureteral stent (05/25) - See above Anxiety and Depression - c/w Amitriptyline and Escitalopram Gastric bypass with Vitamin deficiency - c/w Vitamin D, B12, Multivitamin supplementation RLS - c/w Pramipexole Neuropathy - c/w Gabapentin GERD - c/w Carafate DVT prophylaxis - c/w Heparin DISCHARGE MEDICATIONS: Please see below. ALLERGIES: Please see below. PHYSICAL EXAMINATION ON DISCHARGE: Vitals (See below) General: Lying in bed, no acute distress, comfortable, AAOx3 HEENT: NC, AT CVS: +S1S2 Lungs: Fair air entry b/l, no rhonchi / crackles / wheezing Abdomen: Soft, Non-distended, non-tender Extremities: - Edema, - Calf tenderness LABORATORY DATA: Please see below. ACTIVITY: [As tolerated]. DISCHARGE PLAN: Follow up with Dr. Michel Bray and Dr. Ashley within 7 days Remain compliant with treatment plan and medications Return to the ER if you experience any problems DISPOSITION: Home DISCHARGE CONDITION: [Stable]. TIME SPENT ON DISCHARGE: 35 minutes Vital Signs/I&Os Vital Signs Date Time Temp Pulse Resp B/P (MAP) Pulse Ox O2 Delivery O2 Flow Rate FiO2 06/02/19 06:00 96.8 72 15 126/69 (88) 93 Room Air I&O- Last 24 Hours up to 6 AM 06/02/19 06:00 Intake Total 780 ml Output Total 750 ml Balance 30 ml Laboratory Data Labs 24H Laboratory Tests 2 06/01/19 10:27: Immature Granulocyte % (Auto) 0.3, Neutrophils (%) (Auto) 59.9, Lymphocytes (%) (Auto) 28.2, Monocytes (%) (Auto) 8.1H, Eosinophils (%) (Auto) 2.8, Basophils (%) (Auto) 0.7, Neutrophils # (Auto) 4.5, Lymphocytes # (Auto) 2.1, Monocytes # (Auto) 0.6, Eosinophils # (Auto) 0.2, Basophils # (Auto) 0.1, Nucleated Red Blood Cells % (auto) 0.0 06/02/19 05:52: Immature Granulocyte % (Auto) 0.2, Neutrophils (%) (Auto) 41.7, Lymphocytes (%) (Auto) 42.3, Monocytes (%) (Auto) 7.8H, Eosinophils (%) (Auto) 7.0H, Basophils (%) (Auto) 1.0, Neutrophils # (Auto) 2.0, Lymphocytes # (Auto) 2.1, Monocytes # (Auto) 0.4, Eosinophils # (Auto) 0.3, Basophils # (Auto) 0.1, Nucleated Red Blood Cells % (auto) 0.0, Anion Gap 6L, Glomerular Filtration Rate > 60.0, Calcium Level 8.1L, Magnesium Level 2.2 CBC/BMP Laboratory Tests 06/01/19 10:27 06/02/19 05:52 Microbiology Microbiology 06/01/19 Blood Culture, Received Pending 06/01/19 Blood Culture - Preliminary, Resulted No growth after 24 hours . All specim... Discharge Medications Scheduled Amitriptyline HCl (Amitriptyline HCl) 25 Mg Tablet, 25 MG PO QHS, (Reported) Cholecalciferol (Vitamin D3) (Vitamin D3) 5,000 Unit Tab.rapdis, 5,000 UNIT PO DAILY, (Reported) Cyanocobalamin (Vitamin B-12) (Vitamin B-12) 500 Mcg Tablet, 500 MCG PO DAILY, (Reported) Docusate Sodium (Stool Softener) 100 Mg Capsule, 200 MG PO QHS, (Reported) Escitalopram Oxalate (Lexapro) 10 Mg Tablet, 10 MG PO DAILY, (Reported) Ferrous Gluconate (Ferrous Gluconate) 324 Mg Tablet, 324 MG PO DAILY, (Reported) Gabapentin (Gabapentin) 100 Mg Capsule, 100 MG PO BID, (Reported) Multivitamin (Chewable-Pierce) 1 Each Tab.chew, 1 CHW PO DAILY, (Reported) Pramipexole Di-HCl (Mirapex) 0.125 Mg Tablet, 0.125 MG PO QHS, (Reported) Sucralfate (Sucralfate) 1 Gm Tablet, 1 GM PO BID, (Reported) Tamsulosin HCl (Flomax) 0.4 Mg Capsule, 0.4 MG PO DAILY Scheduled PRN Ketorolac Tromethamine (Ketorolac Tromethamine) 10 Mg Tablet, 10 MG PO Q6HP PRN for pain Oxycodone HCl/Acetaminophen (Oxycodone-Acetaminophen 5-325) 1 Each Tablet, 1 TAB PO Q6H PRN for PAIN, (Reported) Phenazopyridine HCl (Phenazopyridine HCl) 200 Mg Tablet, 200 MG PO TID PRN for BLADDER SPASM, (Reported) Allergies Coded Allergies: fluoxetine (Verified Allergy, Intermediate, rash, itching, 05/26/19) tomato (Verified Allergy, Intermediate, TOMATO SEEDS - HIVES, 05/26/19) DAVID ZULUAGA MD Jun 02, 2019 09:30
== END 2019-06-02 11:22 | disposition home or self-care (01) | DRG 699 ==
LOC: M MSPAV 06-01 06:34
PROVIDERS: ADMIT Internal Medicine; ATTEND Internal Medicine
DX: T83.122A Displacement of indwelling ureteral stent, initial encounter (principal); N13.30 Unspecified hydronephrosis; N20.1 Calculus of ureter; F41.9 Anxiety disorder, unspecified; K21.9 Gastro-esophageal reflux disease without esophagitis; Y83.1 Surgical operation with implant of artificial internal device as the cause of abnormal reaction of the patient, or of later complication, without mention of misadventure at the time of the procedure; F32.9 Major depressive disorder, single episode, unspecified; G62.9 Polyneuropathy, unspecified; G25.81 Restless legs syndrome; E55.9 Vitamin D deficiency, unspecified; J67.0 Farmer's lung; Z98.84 Bariatric surgery status; Z87.891 Personal history of nicotine dependence

== ENCOUNTER → 2019-12-21 | Outpatient (CLI) | payer MEDICARE, MEDICAID ==
[~2019-12-21] MED LIST changes: +BACT800T5 PO; +D31000TA2 PO; +FLOM0.4C39 PO; +GABA-1171 PO; +KETO10TAB PO; +LEVO1INJ27 IV; +MIRA0.12 PO; +SUCR1TAB56 PO; +THERTAB52 PO
== END ==
LOC: M LABSMTC 08:02
PROVIDERS: ATTEND Anesthesiology
DX: Z01.812 Encounter for preprocedural laboratory examination (principal); Z20.828 Contact with and (suspected) exposure to other viral communicable diseases
CPT/HCPCS: C9803; U0003

== ENCOUNTER 2019-12-26 07:10 | Day surgery (SDC) | payer MEDICARE, MEDICAID ==
[~2019-12-26] VITALS: Ht 154.9 cm; Wt 77.0 kg
[~2019-12-26 07:10] MED LIST changes: +LR 1,000 ML IV ONE; +ceFAZolin SOD 2 GM in IV 1 EA IV ONE
[2019-12-26] MEDS ORDERED: LIDOCAINE 2% 100MG/5ML SDV (FOR ANES.) As Ordered ONE (08:14)
[2019-12-26] MEDS ORDERED: fentaNYL 100 MCG/2 ML INJECTION (J3010) As Ordered ONE (08:14)
[2019-12-26] MEDS ORDERED: MIDAZOLAM INJ 2MG/2ML VIAL (J2250 PER 1MG) As Ordered ONE (08:14)
[2019-12-26] MEDS ORDERED: propofoL 200 MG/20 ML VIAL As Ordered ONE (08:14)
[2019-12-26] MEDS ORDERED: dexameTHASONE 4 MG/ML 1ML VIAL (J1100 PER 1MG) As Ordered ONE ×2 (08:14→08:36)
[2019-12-26] MEDS ORDERED: ONDANSETRON 4MG/2ML VIAL As Ordered ONE (08:14)
[2019-12-26] MEDS ORDERED: KETOROLAC 60MG 2ML VIAL As Ordered ONE (08:14)
[2019-12-26] MEDS ORDERED: NEOSPORIN GU IRRIG 20 ML VIAL As Ordered ONE (08:36)
[2019-12-26] MEDS ORDERED: BUPIVACAINE HCL 0.5% 30 ML VIAL As Ordered ONE (08:36)
[2019-12-26] MEDS ORDERED: LIDOCAINE 2% MDV 20ML VIAL As Ordered ONE (08:36)
[2019-12-26] MEDS ORDERED: BACITRACIN PWD 50,000 UNITS VIAL As Ordered ONE (08:36)
[2019-12-26] MEDS ORDERED: METOCLOPRAMIDE INJ 10MG/2ML VIAL (J2765 PER 1) As Ordered ONE (08:56)
[2019-12-26] MEDS ORDERED: LR 1,000 ML IV SCH (11:00)
[2019-12-26] MEDS ORDERED: METOCLOPRAMIDE INJ 10MG/2ML VIAL (J2765 PER 1) IV PRN (11:00)
[2019-12-26] MEDS ORDERED: oxyCODONE 5MG TAB PO PRN (11:00)
[2019-12-26] MEDS ORDERED: ONDANSETRON 4MG/2ML VIAL IV PRN (11:00)
[2019-12-26 11:30] VITALS: BP 144/76
--- NOTE | 2019-12-29 07:53 | RO ---
DATE OF OPERATION: 12/26/2019 PREOPERATIVE DIAGNOSIS: Plantar fasciitis, right foot. POSTOPERATIVE DIAGNOSIS: Plantar fasciitis, right foot. PROCEDURE PERFORMED: Endoscopic plantar fasciotomy, right foot. ANESTHESIA: Local monitored anesthesia care (MAC). IRRIGATION: Dilute Bacitracin, neomycin, and polymyxin B solution. HEMOSTATIS: Ankle pneumatic tourniquet at 250 mmHg for 23 minutes. DESCRIPTION OF PROCEDURE: On 12/26/2019, this 64-year-old white female was taken from her hospital room to the operating room and placed on the operating table in the supine position. Following the induction of IV sedation, local and regional anesthesia, the right lower extremity was prepped and draped in the usual aseptic manner. Attention was directed to the patient's right foot where a 5 mm incision was placed over the medial aspect of the foot distal to the medial tuberosity of the heel. Dissection was carried down with dissection scissors down to the plantar fascia. Utilizing an elevator, the plantar fascia was freed along its inferior aspect. Utilizing an obturator with cannula, it was introduced along the medial portal and brought to the lateral side of the foot. A small stab incision was made and the cannula was placed through the second portal site and the obturator was removed. A 4 mm beveled scope was then placed into the wound visualizing the plantar fascia, which had an image obtained. Utilizing an Instratek knife blade with the scope in the medial portal and the blade in the lateral portal, the blade was introduced to the most medial aspect of the plantar fascia and under direct visualization, approximately 40% of the plantar fascia was transected. Under direct visualization an intraoperative picture was obtained. The knife and scope were then removed. Obturator was removed. The wound was flushed with copiously amounts of dilute Bacitracin, neomycin, and polymyxin B solution. Both portal sites were closed with 4-0 Vicryl suture in a simple interrupted type fashion. Medial and lateral portal was closed with 4-0 Prolene in a horizontal mattress like fashion. A dry sterile dressing was applied consisting of Adaptic, 4 x 4x, and Kerlix. Four mg of dexamethasone sodium phosphate was instilled just prior to application of the bandage. The patient, having apparently tolerated the surgical procedure well, was taken from the OR to the recovery room for further monitoring by the anesthesia department. Postoperative instructions will be given upon discharge. ARSENIO
== END 2019-12-26 11:30 | disposition home or self-care (01) ==
LOC: M SDC 07:10
PROVIDERS: ATTEND Podiatrist
DX: M72.2 Plantar fascial fibromatosis (principal); K21.9 Gastro-esophageal reflux disease without esophagitis; K58.8 Other irritable bowel syndrome; Z98.84 Bariatric surgery status; Z79.899 Other long term (current) drug therapy; Z88.0 Allergy status to penicillin; Z91.018 Allergy to other foods
CPT/HCPCS: 29893; 97116; J0690; J1100; J2250; J2405; J2765; J3010

== ENCOUNTER → 2020-07-30 | Outpatient (CLI) | payer MEDICARE, MEDICAID ==
[~2020-07-30] MED LIST changes: -AMIT25TA PO; +AMIT25TA17 PO; +BACTDSTA PO; -DOCU-129 PO; +DOCU-153 PO; +GABA-283 PO; -GABA-845 PO; -LR 1,000 ML IV ONE; -PHEN-594 PO; +PHEN1TAB74 PO; -SULF1TAB93 PO; -ceFAZolin SOD 2 GM in IV 1 EA IV ONE
--- NOTE | 2020-07-30 12:27 | REPVR ---
PROCEDURE INFORMATION: Exam: CT Right Upper Extremity Without Contrast, Shoulder Exam date and time: 07/30/2020 11:30 AM Age: 65 years old Clinical indication: Pain; Prior surgery; Surgery date: 6+ months; Surgery type: Right shoulder; Additional info: RT shoulder oa assess bone quality for total shoul TECHNIQUE: Imaging protocol: CT of the Right upper extremity without contrast was performed. Exam focused on the shoulder. Radiation optimization: All CT scans at this facility use at least one of these dose optimization techniques: automated exposure control; mA and/or kV adjustment per patient size (includes targeted exams where dose is matched to clinical indication); or iterative reconstruction. COMPARISON: MRI-Shoulder W/O CONTRAST RIGHT 02/12/2019 3:13 PM FINDINGS: Bones/joints: There is moderate arthritic changes involving the glenohumeral joint with mild sclerosis of the glenoid rim. Lucencies are noted linear within the shoulder likely due to a prior repair possibly even a biceps tenodesis. Small degenerative bone cysts are seen involving the bony glenoid. The humerus is not high-riding. There is a surgical clip noted within the humeral neck. The acromioclavicular joint is intact. Soft tissues: Normal. Lungs: Multiple nodules are noted within the right lung. These all appear to measure less than 1 cm. Perhaps 1 or 2 are calcified. Consider full chest CT for further and better evaluation. Calcified hilar and mediastinal lymph nodes are noted. IMPRESSION: 1. Postoperative changes with arthritic changes in the glenohumeral joint. 2. Numerous pulmonary nodules. Quite a few appear calcified and there appear to be calcified hilar lymph nodes likely due to granulomatous disease. Consider nonemergent chest CT for follow-up. Electronically signed by: Elias Tapia On 07/30/2020 12:27:05 PM
--- NOTE | 2020-07-30 14:06 | REP ---
INDICATION: RT SHOULDER OA ASSESS BONE QUALITY FOR TOTAL SHOUL. COMPARISON: Comparison radiographs are from July 07, 2020. Comparison right shoulder CT study July 30, 2020. Comparison MRI study of the right shoulder February 12, 2019.. TECHNIQUE: Axial, oblique coronal, oblique sagittal imaging planes utilized. T1 and T2 weighted scans are included with without fat saturation. FINDINGS: Cortical and medullary bone signal intensity are normal. There are postoperative pin tracks in the humeral head and the surgical neck region of the humerus. There is osteoarthritis of the AC joint. Mild subcortical cyst formation and marrow edema are seen in the glenoid. No bony destructive lesion is seen. There is a minimal amount of joint fluid. A small subacromial subdeltoid bursal effusion is seen. There is advanced tendinitis tendinosis change with swelling and increased signal intensity in the distal portion of the supraspinatus tendon. The infraspinatus tendon appears intact. There is micrometallic artifact in the adjacent soft tissues from previous surgery. The subscapularis tendon appears intact. There is fairly advanced glenohumeral chondromalacia with large area of the glenoid showing essentially full-thickness articular cartilage loss. There is anterior and posterior labral cartilage fluid signal along the base of the labral cartilage. This is consistent with labral tear. No juxta-articular cyst or mass is seen. IMPRESSION: Glenohumeral acromioclavicular joint osteoarthritis. Postoperative changes. Anterior and posterior glenoid labral cartilage disruption. Patient appears to be status post biceps tendon transfer. Mild subcortical cyst formation is seen in the glenoid. <Electronically signed by Eron Nuñez > 07/30/20 [id number]
== END ==
LOC: M RAD 11:13
PROVIDERS: ATTEND Orthopaedic Surgery Sports Medicine
DX: M19.011 Primary osteoarthritis, right shoulder (principal)

== ENCOUNTER 2020-09-15 08:24 | Observation (INO) | payer MEDICARE, MEDICAID ==
[~2020-09-15] VITALS: Ht 152.4 cm; Wt 77.0 kg
[2020-09-15] VITALS (7 sets, daily range): BP systolic 107–133; BP diastolic 57–73
[~2020-09-15 08:24] MED LIST changes: +ALEN35TA56 PO; +B-122500 PO; +LR 1,000 ML IV ONE; +MIDAZOLAM INJ 2MG/2ML VIAL (J2250 PER 1MG) IV PRN; +PANT40TA29 PO; +VITMTA PO; +ceFAZolin SOD 2 GM in IV 1 EA IV ONE
[2020-09-15] MEDS ORDERED: ROCURONIUM BROMIDE 50 MG/5 ML VIAL As Ordered ONE (09:08)
[2020-09-15] MEDS ORDERED: LIDOCAINE 2% 100MG/5ML SDV (FOR ANES.) As Ordered ONE (09:08)
[2020-09-15] MEDS ORDERED: fentaNYL 100 MCG/2 ML INJECTION (J3010) As Ordered ONE ×2 (09:10→12:42)
[2020-09-15] MEDS ORDERED: SCOPOLAMINE 1MG TRANSDERMAL PATCH TOP ONE (09:25)
[2020-09-15] MEDS ORDERED: LIDOCAINE 1% MDV 20ML VIAL XX ONE (09:30)
[2020-09-15] MEDS ORDERED: ROPIvacaine 0.5% 30ML INJECTION (J2795 PER 1MG) XX ONE (09:30)
[2020-09-15] MEDS ORDERED: dexameTHASONE 10MG/1ML VIAL PRES.FREE (J1100 PER 1MG) XX ONE (09:30)
[2020-09-15] MEDS ORDERED: BUPIVACAINE HCL 0.25% 10ML VIAL As Ordered ONE (09:41)
[2020-09-15] MEDS ORDERED: TRANEXAMIC ACID 100 MG/ML 10ML VIAL As Ordered ONE (09:41)
[2020-09-15] MEDS ORDERED: ceFAZolin 1GM VIAL (J0690 PER 500MG) As Ordered ONE (09:41)
[2020-09-15] MEDS ORDERED: EPINEPHrine INJ 1 MG/ML 1ML AMP As Ordered ONE (09:41)
[2020-09-15] MEDS: fentaNYL 100 MCG/2 ML INJECTION (J3010) IV PRN ×6 (09:42→13:22)
[2020-09-15] MEDS ORDERED: BUPIVACAINE LIPOSOME/PF 1.3% 20ML VIAL (13.3MG/ML)(EXPAREL)(C9290 PER1MG) As Ordered ONE (09:42)
[2020-09-15] MEDS ORDERED: METOCLOPRAMIDE INJ 10MG/2ML VIAL (J2765 PER 1) As Ordered ONE (10:27)
[2020-09-15] MEDS ORDERED: dexameTHASONE 4 MG/ML 1ML VIAL (J1100 PER 1MG) As Ordered ONE (10:32)
[2020-09-15] MEDS ORDERED: ONDANSETRON 4MG/2ML VIAL As Ordered ONE (10:32)
[2020-09-15] MEDS ORDERED: ePHEDrine SULFATE 25 MG/5 ML(5MG/ML) SYRINGE As Ordered ONE (10:41)
[2020-09-15] MEDS ORDERED: propofoL 200 MG/20 ML VIAL As Ordered ONE (10:56)
[2020-09-15] MEDS ORDERED: SUGAMMADEX SODIUM 500 MG/5 ML VIAL (BRIDION) As Ordered ONE (12:19)
[2020-09-15] MEDS ORDERED: ONDANSETRON 4MG/2ML VIAL IV PRN (12:50)
[2020-09-15] MEDS ORDERED: LR 1,000 ML IV SCH ×2 (12:50→16:25)
[2020-09-15] MEDS: oxyCODONE 5MG TAB PO PRN ×2 (13:22→13:58)
[2020-09-15] MEDS ORDERED: ACETAMINOPHEN *IV* 1,000 MG IV ONE ×2 (13:50)
--- NOTE | 2020-09-15 16:13 | ROOPDOC ---
[facility] Report Of Operation Report of Operation DATE OF PROCEDURE: 09/15/20 PREPROCEDURE DIAGNOSES: Right shoulder osteoarthritis and rotator cuff tear . POSTPROCEDURE DIAGNOSES: Same. PROCEDURE PERFORMED: Right reverse total shoulder arthroplasty. SURGEON: Dr. Yandel Huntley MD SPORTS MANAGER: None ANESTHESIA: General anesthesia and preoperative block Dr. Vega. ESTIMATED BLOOD LOSS: Approximately 100 mL. COMPLICATIONS: None. REMARKS: None. FINDINGS: Right shoulder osteoarthritis and rotator cuff tear SPECIMENS REMOVED: None PROCEDURE NOTE: This 65-year-old female failed rotator cuff repair. She had osteoarthritis difficulty lifting up her arm. We discussed the pros and cons risks and benefits of continued nonsurgical management versus reverse total shoulder arthroplasty. She wished to proceed marked the right upper extremity she had no further questions.. DESCRIPTION OF PROCEDURE: The patient was brought to the operating room theater. 2 g of IV Ancef was administered and 1 g of IV tranexamic acid. Patient was placed supine in the beachchair positioner sat up at a 45 degree angle. All bony prominences were padded. Right upper extremity prepped and draped in the usual sterile fashion with chlorhexidine-based prep solution allowing over 3 minutes drying time prior to draping. Preoperative timeout was performed to confirm the site patient and surgery. Began by making a standard deltopectoral incision. Carried the dissection down through skin and subcutaneous tissue to meticulous hemostasis. I protected the cephalic vein retracted this laterally. I developed the interval. I placed Hawken shoulder retractor. I incised on the lateral aspect of the conjoined tendon retracted this medially. I used 2-0 Vicryl to tie off the circumflex humeral vessels. I performed a subscapularis tenotomy and placed 3 stay sutures #2 fiber wire and retracted this medially. I developed the plane between the anterior capsule and the subscapularis. I carried the tenotomy through the rotator interval proximally. There was some rotator supraspinatus tendon left tight I tried to save this as much as possible, but did have to release this to achieve good reduction of the final components. I used the intramedullary guide to cut at 20 degrees retroversion, and removed the head. I then identified the glenoid. I circumferentially removed the labrum from the glenoid. I placed anterior and posterior retractors. I placed my guidepin center-center to plan for a small JACKMAN baseplate. I angled this slightly anterior and inferiorly. I used a circumferential reamers as well as the center peg drill medium. I then removed the guidepin. I used pulse lavage to clean the center hole. I then impacted into place the small TT baseplate with the medium peg. I then drilled and used 30 mm long screw inferiorly and 25 mm screw superiorly, aiming along scapular spine and dasha-superior towards base of the coracoid. These are 6.5 millimeter screws. I then used a 40 mm eccentric glenosphere tapped this into place and secured it in place with the connecting screw. I then turned my attention back to the humeral side/ I sequentially broached up broached up to a size 16. This was a little bit proud. I dropped the broach down. I used the reverse reamer to create the area for the humeral body, assembled the component on the back table with the size of a 16 mm stem with standard reverse humeral body. I impacted this into place at 20 degrees retroversion. I trialed with a standard diameter liner. This was a stable and solid in all directions without obvious levering out impingement or instability and allowed the patient to get nearly full forward elevation external rotation as well as the hand to the mouth. I then thoroughly cleaned the humeral body and then impacted the final liner into place, and reduced the joint. Subscapularis tenotomy was repaired with the #2 FiberWire sutures. Wound was thoroughly irrigated with pulse lavage. Subcutaneous tissue was closed with interrupted and running 2-0 Vicryl sutures and skin was cleaned with wet and dry dressing. Prineo wound care system with Dermabond was then used. This was allowed to fully dry prior to removing the drapes. Patient's upper extremity was placed into a sling and drapes removed patient woken up from the general anesthetic transferred off the operating room table and taken to postanesthetic care unit in stable condition. All sponge needle instrument counts were correct. Estimated blood loss 100 cc. No complications. Plan to the patient pendulum exercises hand wrist and elbow exercises sling for 4 weeks and for the first 6 weeks to sleep. No external rotation beyond 20 degrees no forward elevation beyond 90 degrees for the first 4 weeks follow-up in clinic in 2 weeks time and they will be admitted overnight due to social situation and pain control. No local anesthetic was used after consultation with the counselor at law due to the preoperative block. Postoperative wound instructions were given. It was recommended to keep the wound clean and dry. Dressing changes as needed. It was reinforced with the patient that they should call us or be seen immediately for redness, drainage, or fever. Risk factors for harms from taking opioid medications discussed and assessed including but not limited to personal or family history of substance use disorder, anxiety or depression, , age 65 or older, COPD or other underlying respiratory conditions, and renal or hepatic insufficiency. Discussed with patient concerns and determined any harms they may experience or be currently experiencing such as nausea or constipation, feeling sedated or confused, breathing interruptions during sleep, or taking or craving more opioids than prescribed or difficulty controlling use (addiction). Discussed early warning signs of overdose including confusion, sedation, slurred speech, abnormal gait. YANDEL HUNTLEY MD Sep 15, 2020 16:13
[2020-09-15] MEDS: PERCOCET 5MG/325MG TAB PO PRN ×2 (16:45→22:57)
[2020-09-15] MEDS: ONDANSETRON 4MG/2ML VIAL IV PRN (19:00)
[2020-09-15] MEDS: MORPHINE 2 MG/ML 1ML VIAL (J2270) IV PRN (21:16)
[2020-09-16] MEDS: MORPHINE 2 MG/ML 1ML VIAL (J2270) IV PRN ×2 (03:45→15:27)
[2020-09-16 03:58] VITALS: O2SAT 93
[2020-09-16 06:00] VITALS: BP 134/75
[2020-09-16] MEDS: PERCOCET 5MG/325MG TAB PO PRN ×3 (06:08→19:48)
[2020-09-16] MEDS: ACETAMINOPHEN TAB 650MG DOSE (2X325MG) PO PRN (09:09)
[2020-09-16 14:00] VITALS: BP 128/73
[2020-09-16] MEDS: ONDANSETRON 4MG/2ML VIAL IV PRN (19:51)
[2020-09-17] MEDS: MORPHINE 2 MG/ML 1ML VIAL (J2270) IV PRN (00:41)
[2020-09-17 01:12] VITALS: O2SAT 94
[2020-09-17 06:26] VITALS: BP 131/69
[2020-09-17] MEDS: PERCOCET 5MG/325MG TAB PO PRN ×3 (07:28→23:40)
[2020-09-17] MEDS: ACETAMINOPHEN TAB 650MG DOSE (2X325MG) PO PRN ×2 (13:07→20:12)
[2020-09-17 14:00] VITALS: BP 129/67
[2020-09-17] MEDS: ONDANSETRON 4MG/2ML VIAL IV PRN (18:01)
[2020-09-17 22:00] VITALS: BP 130/65
[2020-09-17 23:37] VITALS: O2SAT 93
[2020-09-18] MEDS: PERCOCET 5MG/325MG TAB PO PRN ×3 (05:40→21:13)
[2020-09-18 06:30] VITALS: BP 106/58
[2020-09-18 07:36] VITALS: BP 120/70
--- NOTE | 2020-09-18 11:10 | REP ---
INDICATION: post op check. COMPARISON: CT 07/30/2020 TECHNIQUE: Four views. FINDINGS: There is been a right total shoulder arthroplasty with the 2 components well aligned in relationship to the [place] bones and each other. There is a periscapular air-fluid level is a he common postoperative finding in this immediate postoperative study. The clavicle, scapula, ribs and visualized portions of the humerus are without acute bony abnormality. There is no visible pneumothorax. IMPRESSION: 1. Status post right total shoulder arthroplasty with the 2 components well aligned in relationship to the [place] bone and each other and with some postoperative findings in the soft tissues of air-fluid level but no fracture or other acute bony finding. <Electronically signed by Maurizio Peters > 09/18/20 [id number]
[2020-09-18 14:00] VITALS: BP 122/70
--- NOTE | 2020-09-18 20:55 | IPN ---
PROGRESS NOTE DATE: 09/16/2020 CHIEF COMPLAINT: Postoperative day one, right reverse total shoulder arthroplasty. HISTORY OF PRESENT ILLNESS: This 65-year-old female is post-admission day one. She had a right reverse total shoulder arthroplasty. She continued to have pain throughout the day so it was elected to keep her in hospital and not discharge her in the morning. PHYSICAL EXAM: This is a well appearing 65-year-old female. She was sleeping when I saw here. She arouses easily. She complains about pain in the shoulder. The incision was clean and dry, no redness, swelling or discharge. Normal sensation, motor function of the axillary nerve plus LABC, median, radial, ulnar nerves as well as AIN/PIN. The hand is warm and well perfused, strong radial pulse. ASSESSMENT AND PLAN: This is a 65-year-old female who has continued pain after right reverse total shoulder arthroplasty. It was already 5 p.m. when I saw the patient and she was not well controlled with her pain upon simply oral pain medications so we have decided to change her to observation status, one more overnight and hopefully her pain will be well controlled tomorrow and she will able to be discharged home and follow up in the office in two weeks time. She understands the plan and had no further questions. I communicated this directly to the nurse in charge of her care as well.
--- NOTE | 2020-09-18 21:07 | IPN ---
PROGRESS NOTE DATE: 09/18/2020 CHIEF COMPLAINT: Postop day three, right reverse total shoulder arthroplasty. HISTORY OF PRESENT ILLNESS: This 65-year-old female underwent an uncomplicated right reverse total shoulder arthroplasty three days ago. She has been admitted to the hospital, converted to observation status due to postop pain control, difficulties getting onto oral pain medications. She still complains about 8/10 pain, no fevers, chills or other complaints from her aside from right shoulder pain. . PHYSICAL EXAM: This is a well appearing 65-year-old female. Vital signs are stable. Temperature is 97.9. She appears well albeit slightly uncomfortable. The right shoulder, the dressing is dry. No redness, swelling, discharge or drainage. The axillary nerve has normal sensation, motor function as does the hand. The hand is warm and well perfused, strong radial pulse, normal motor and sensory function to MRU and AIN/PIN. ASSESSMENT AND PLAN: This is a 65-year-old female who has continued pain after right reverse total shoulder arthroplasty. I will order a postoperative radiograph to ensure no complications that are causing her pain and if this is normal, discharge her home as long as she is comfortable on oral pain medications to follow up in the office in two weeks time.
[2020-09-18 22:00] VITALS: BP 117/69
[2020-09-19 01:50] VITALS: O2SAT 91
[2020-09-19] MEDS: PERCOCET 5MG/325MG TAB PO PRN ×2 (02:34→13:52)
[2020-09-19 06:00] VITALS: BP 130/69
--- NOTE | 2020-09-19 21:05 | DS.PDOC ---
Discharge Summary General Date of Admission Sep 16, 2020 at 16:50 Date of Discharge September 19, 2020 Discharge Summary PROCEDURES PERFORMED DURING STAY: Right reverse total shoulder arthroplasty ADMITTING DIAGNOSES: 1. Right shoulder OA and RC tear DISCHARGE DIAGNOSES: 1. Same COMPLICATIONS/CHIEF COMPLAINT: Right Shoulder Osteoarthritis. HISTORY OF PRESENT ILLNESS: Failure of prior RC repair HOSPITAL COURSE: Uncomplicated. Post op pain control main concern for patient as well as home supports DISCHARGE MEDICATIONS: Please see below. ALLERGIES: Please see below. PHYSICAL EXAMINATION ON DISCHARGE: VITAL SIGNS: Please see below. Comfortable. Normal appearance EXTREMITIES: RIght shoulder Prineo dressing dry, clean, intact. SKIN: NEUROLOGICAL EXAMINATION: Normal motor and sens to MRU AIN/PIN and axillary LABORATORY DATA: Please see below. IMAGING: Normal right shoulder RTSA position PROGNOSIS: Good ACTIVITY: [As tolerated]. No ER over 20, no FE over 90. Sling only weeks 0-4 DIET:as tolerated DISCHARGE PLAN:FU 2 weeks DISPOSITION: 01 Home, Self-Care. DISCHARGE INSTRUCTIONS: 1. FU 2 weeks ITEMS TO FOLLOWUP ON ON OUTPATIENT: 1. Pain control DISCHARGE CONDITION: Stable TIME SPENT ON DISCHARGE: Greater than5 minutes. Vital Signs/I&Os Vital Signs Date Time Temp Pulse Resp B/P (MAP) Pulse Ox O2 Delivery O2 Flow Rate FiO2 09/19/20 14:29 16 09/19/20 06:00 98.7 84 130/69 (89) 93 Room Air 09/16/20 14:00 2.0 I&O- Last 24 Hours up to 6 AM 09/19/20 06:00 Intake Total 1770 ml Balance 1770 ml Discharge Medications Scheduled Alendronate Sodium (Alendronate Sodium) 35 Mg Tablet, 35 MG PO QWEEK, (Reported) Amitriptyline HCl (Amitriptyline HCl) 25 Mg Tablet, 25 MG PO QHS, (Reported) Cholecalciferol (Vitamin D3) (Vitamin D3) 1,000 Unit Tablet, 5,000 UNITS PO DAILY, (Reported) Cyanocobalamin (Vitamin B-12) (Vitamin B12) 2,500 Mcg Tablet, 2,500 MCG PO DAILY, (Reported) Docusate Sodium (Stool Softener) 100 Mg Capsule, 200 MG PO QHS, (Reported) Escitalopram Oxalate (Lexapro) 10 Mg Tablet, 10 MG PO DAILY, (Reported) Ferrous Gluconate (Ferrous Gluconate) 324 Mg Tablet, 324 MG PO DAILY, (Reported) Gabapentin (Gabapentin) 400 Mg Capsule, 100 MG PO BID, (Reported) Multivitamins (Thera M Plus Tablet) 1 Each Tablet, 1 TAB PO DAILY, (Reported) Pantoprazole Sodium (Pantoprazole Sodium) 40 Mg Tablet.dr, 40 MG PO DAILY, (Reported) Sucralfate (Sucralfate) 1 Gm Tablet, 1 GM PO BID, (Reported) Allergies Coded Allergies: fluoxetine (Verified Allergy, Intermediate, rash, itching, 12/26/19) tomato (Verified Allergy, Intermediate, TOMATO SEEDS - HIVES, 12/26/19) chlorhexidine (Verified Adverse Reaction, Unknown, 09/15/20) ITCHING, BURNING CARROL HUNTLEY MD Sep 19, 2020 21:04
== END 2020-09-19 15:10 | disposition home or self-care (01) ==
LOC: M SDC 08:24 → M MS5PR 08:25 → M SDC 09-16 16:49 → M MS5PR 09-16 16:50 → UNDOADMOB 09-16 16:50 → UNDODISOB 09-19 15:10 → M MS5PR 09-22 08:24 → M SDC 09-22 08:24
PROVIDERS: ADMIT Orthopaedic Surgery Sports Medicine; ATTEND Orthopaedic Surgery Sports Medicine
DX: M19.011 Primary osteoarthritis, right shoulder (principal); M25.511 Pain in right shoulder; F41.9 Anxiety disorder, unspecified; F32.9 Major depressive disorder, single episode, unspecified; M54.9 Dorsalgia, unspecified; K92.9 Disease of digestive system, unspecified; K58.9 Irritable bowel syndrome, unspecified; M81.0 Age-related osteoporosis without current pathological fracture; G43.909 Migraine, unspecified, not intractable, without status migrainosus; Z87.442 Personal history of urinary calculi; J67.0 Farmer's lung; Z98.84 Bariatric surgery status; Z79.899 Other long term (current) drug therapy; Z79.891 Long term (current) use of opiate analgesic; Z88.8 Allergy status to other drugs, medicaments and biological substances; Z87.891 Personal history of nicotine dependence
CPT/HCPCS: 23472; 64415; 73030; 88304; 88311; 96374; 96375; 96376; C1713; C1776; C9290; G0378; J0131; J0690; J1100; J2250; J2270; J2405; J2765; J3010

== ENCOUNTER → 2020-10-26 | Outpatient (CLI) | payer MEDICARE, MEDICAID ==
[~2020-10-26] MED LIST changes: -LR 1,000 ML IV ONE; -MIDAZOLAM INJ 2MG/2ML VIAL (J2250 PER 1MG) IV PRN; -ceFAZolin SOD 2 GM in IV 1 EA IV ONE
--- NOTE | 2020-10-26 15:03 | REP ---
INDICATION: SURGICAL AFTERCARE. COMPARISON: None. TECHNIQUE: Neutral, internal rotation, external rotation, axillary and Y-view of the right shoulder FINDINGS: Satisfactory right shoulder replacement with normal appearance and positioning to the scapular and humeral components. Remaining osseous structures appear relatively intact and normal. Surrounding soft tissues are normal. IMPRESSION: Satisfactory right shoulder replacement radiographs. <Electronically signed by Rony Vásquez > 10/26/20 2050
== END ==
LOC: M SOG 14:22
PROVIDERS: ATTEND Orthopaedic Surgery Sports Medicine
DX: Z47.1 Aftercare following joint replacement surgery (principal)

== ENCOUNTER → 2020-12-07 | Outpatient (CLI) | payer MEDICARE, MEDICAID ==
--- NOTE | 2020-12-07 14:38 | REP ---
INDICATION: RT SHOULDER REPLACEMENT. COMPARISON: 10/26/2020 TECHNIQUE: Neutral, internal rotation, external rotation, axillary and Y-view of the right shoulder FINDINGS: Patient is again noted to be status post right shoulder replacement with stable normal positioning to the orthopedic hardware. Osseous structures and joint spaces are intact and essentially normal/stable. No acute process appreciated. IMPRESSION: Stable right shoulder replacement. <Electronically signed by Rony Vásquez > 12/07/20 0768
== END ==
LOC: M SOG 14:20
PROVIDERS: ATTEND Orthopaedic Surgery Sports Medicine
DX: Z47.1 Aftercare following joint replacement surgery (principal); Z96.611 Presence of right artificial shoulder joint

== ENCOUNTER → 2021-03-31 | Outpatient (CLI) | payer MEDICARE, MEDICAID | LOC: M SOG 03-30 16:17 | PROVIDERS: ATTEND Orthopaedic Surgery | DX: M16.0 Bilateral primary osteoarthritis of hip (principal); M25.552 Pain in left hip ==

== ENCOUNTER → 2021-04-15 | Outpatient (CLI) | payer MEDICARE, MEDICAID ==
[~2021-04-15] MED LIST changes: +BUPIVACAINE HCL 0.5% 30 ML VIAL As Ordered ONE; +ISOVUE-300 61% 50ML VIAL As Ordered ONE; +methylPREDNISolone 80MG/ML SUSP 1ML VIAL (J1040) As Ordered ONE
== END ==
LOC: M RADPRO 09:46
PROVIDERS: ATTEND Orthopaedic Surgery
DX: M16.12 Unilateral primary osteoarthritis, left hip (principal)
CPT/HCPCS: 20610; 77002; J1040; Q9967

== ENCOUNTER → 2021-06-06 | Outpatient (REF) | payer MEDICARE, MEDICAID ==
[~2021-06-06] MED LIST changes: -BUPIVACAINE HCL 0.5% 30 ML VIAL As Ordered ONE; -D31000TA2 PO; -ISOVUE-300 61% 50ML VIAL As Ordered ONE; +VITA100093 PO; -methylPREDNISolone 80MG/ML SUSP 1ML VIAL (J1040) As Ordered ONE
[2021-06-06 18:11] LABS: AMORPHOUS SEDIMENT SMALL (NEGATIVE); APPEARANCE, URINE HAZY (CLEAR); BACTERIA, URINE AUTO NEGATIVE (NEGATIVE); BILIRUBIN, URINE AUTO NEGATIVE (NEGATIVE); BLOOD, URINE BLOOD NEGATIVE (NEGATIVE); COLOR, URINE YELLOW (YELLOW); GLUCOSE, URINE (UA) AUTO NEGATIVE (NEGATIVE); KETONE, URINE AUTO NEGATIVE (NEGATIVE); LEUKOCYTE ESTERASE, URINE AUTO TRACE (NEGATIVE); MUCUS, URINE SMALL (NEGATIVE); NITRITE, URINE AUTO NEGATIVE (NEGATIVE); PROTEIN, URINE AUTO NEGATIVE (NEGATIVE); RBC, URINE AUTO 4 /HPF (0-3); SPECIFIC GRAVITY URINE AUTO 1.023 (1.002-1.035); SQUAMOUS EPITHELIAL CELL UR AU 2 /HPF (0-6); UROBILINOGEN, URINE AUTO 0.2 mg/dL (0.0-2.0); WBC, URINE AUTO 6 /HPF (0-3)
== END ==
LOC: M SMT 16:59
PROVIDERS: ATTEND Physician Assistant
DX: R10.9 Unspecified abdominal pain (principal)

== ENCOUNTER → 2021-06-07 | Outpatient (CLI) | payer MEDICARE, MEDICAID | LOC: M SOG 12:28 | PROVIDERS: ATTEND Orthopaedic Surgery | DX: M16.12 Unilateral primary osteoarthritis, left hip (principal) ==

== ENCOUNTER 2021-06-26 14:27 | Emergency (ER) | payer MEDICARE, MEDICAID ==
[~2021-06-26] VITALS: Ht 154.9 cm; Wt 74.2 kg
[2021-06-26 15:47] LABS: BASO # 0.1 10^3/uL (0.0-0.2); BASO % 0.9 % (0.0-1.0); EOS # 0.2 10^3/uL (0.0-0.5); EOS % 3.2 % (0.0-3.0); HEMATOCRIT 38.8 % (36.0-47.0); HEMOGLOBIN 12.8 g/dl (12.0-15.5); LYMPH # 2.3 10^3/uL (1.5-5.0); LYMPH % 33.4 % (24.0-44.0); MEAN CORPUSCULAR HEMOGLOBIN 31.5 pg (27.0-33.0); MEAN CORPUSCULAR VOLUME 95.6 fl (80.0-96.0); MONO # 0.5 10^3/uL (0.0-0.8); MONO % 6.9 % (2.0-8.0); NEUTROPHILS # 3.8 10^3/uL (1.5-8.5); NEUTROPHILS % 55.3 % (36.0-66.0); PLATELET COUNT, AUTOMATED 253 10^3/uL (150-450); RED BLOOD COUNT 4.06 10^6/uL (4.00-5.40); WHITE BLOOD COUNT 6.9 10^3/uL (4.0-10.0)
[2021-06-26 16:16] LABS: ALBUMIN 3.1 GM/DL (3.2-5.2); ALT/SGPT 24 U/L (12-78); BILIRUBIN,DIRECT < 0.1 MG/DL (0.0-0.2); BILIRUBIN,TOTAL 0.4 MG/DL (0.2-1.0); LIPASE 111 U/L (73-393); TOTAL PROTEIN 6.3 GM/DL (6.4-8.2)
[2021-06-26 16:43] LABS: BLOOD UREA NITROGEN 16 MG/DL (7-18); CALCIUM LEVEL 8.5 MG/DL (8.8-10.2); CARBON DIOXIDE LEVEL 22 MEQ/L (21-32); CHLORIDE LEVEL 115 MEQ/L (98-107); CREATININE FOR GFR 0.64 MG/DL (0.55-1.30); GLOMERULAR FILTRATION RATE > 60.0 (>45); GLUCOSE, FASTING 84 MG/DL (70-100); POTASSIUM SERUM 4.9 MEQ/L (3.5-5.1); SODIUM LEVEL 143 MEQ/L (136-145)
[2021-06-26] MEDS ORDERED: KETOROLAC 30 MG/ML 1ML VIAL IV ONE (16:50)
[2021-06-26] MEDS ORDERED: ISOVUE-370 76% 100ML VIAL As Ordered ONE (17:34)
[2021-06-26] MEDS ORDERED: MORPHINE 2 MG/ML 1ML VIAL IV ONE (17:40)
[2021-06-26] MEDS ORDERED: ONDANSETRON 4MG/2ML VIAL IV ONE (17:40)
[2021-06-26] MEDS ORDERED: ONDANSETRON 4MG/2ML VIAL As Ordered ONE (17:47)
[2021-06-26 19:37] VITALS: BP 156/76
== END 2021-06-26 19:58 | disposition home or self-care (01) ==
LOC: M ED 14:27
DX: R10.9 Unspecified abdominal pain (principal); R31.9 Hematuria, unspecified; R11.0 Nausea; N20.0 Calculus of kidney; K76.89 Other specified diseases of liver; Z98.84 Bariatric surgery status; Z87.442 Personal history of urinary calculi; K27.9 Peptic ulcer, site unspecified, unspecified as acute or chronic, without hemorrhage or perforation; J67.0 Farmer's lung; Z88.8 Allergy status to other drugs, medicaments and biological substances; Z79.899 Other long term (current) drug therapy
CPT/HCPCS: 74176; 80048; 80076; 81001; 83690; 85025; 99284; J1885; J2270; J2405

== ENCOUNTER → 2021-07-05 | Outpatient (CLI) | payer MEDICARE, MEDICAID | LOC: M RAD 15:27 | PROVIDERS: ATTEND Orthopaedic Surgery | DX: M16.0 Bilateral primary osteoarthritis of hip (principal) ==

== ENCOUNTER → 2021-08-08 | Outpatient (CLI) | payer MEDICARE, MEDICAID ==
[~2021-08-08] MED LIST changes: +FISH1CAP26 PO; +ONDA-83 PO; +TRAM37.53 PO
== END ==
LOC: M LABSMTC 10:26
PROVIDERS: ATTEND Anesthesiology
DX: Z01.818 Encounter for other preprocedural examination (principal); Z11.52 Encounter for screening for COVID-19

== ENCOUNTER 2021-08-12 05:57 | Day surgery (SDC) | payer MEDICARE, MEDICAID ==
[~2021-08-12] VITALS: Ht 152.4 cm; Wt 74.4 kg
[2021-08-12] MEDS ORDERED: ceFAZolin SOD 2 GM in IV 1 EA IV ONE (06:00)
[2021-08-12] MEDS ORDERED: ISOVUE-300 61% 50ML VIAL As Ordered ONE (07:21)
[2021-08-12] MEDS ORDERED: MIDAZOLAM INJ 2MG/2ML VIAL (J2250 PER 1MG) As Ordered ONE (07:23)
[2021-08-12] MEDS ORDERED: ONDANSETRON 4MG/2ML VIAL As Ordered ONE (07:23)
[2021-08-12] MEDS ORDERED: dexameTHASONE 4 MG/ML 1ML VIAL (J1100 PER 1MG) As Ordered ONE (07:23)
[2021-08-12] MEDS ORDERED: LIDOCAINE 2% 100MG/5ML SDV (FOR ANES.) As Ordered ONE (07:23)
[2021-08-12] MEDS ORDERED: propofoL 200 MG/20 ML VIAL As Ordered ONE (07:23)
[2021-08-12] MEDS ORDERED: fentaNYL 100 MCG/2 ML INJECTION As Ordered ONE (07:24)
[2021-08-12] MEDS ORDERED: ePHEDrine SULFATE 25 MG/5 ML(5MG/ML) SYRINGE As Ordered ONE (08:08)
[2021-08-12] MEDS ORDERED: ACETAMINOPHEN 1000MG 100ML IV BTL (OFIRMEV) (J0131 PER 10MG) As Ordered ONE (08:10)
[2021-08-12] MEDS ORDERED: METOCLOPRAMIDE INJ 10MG/2ML VIAL (J2765 PER 1) As Ordered ONE (08:33)
[2021-08-12] MEDS ORDERED: LR 1,000 ML IV SCH (08:45)
[2021-08-12] MEDS ORDERED: fentaNYL 100 MCG/2 ML INJECTION IV PRN (08:45)
[2021-08-12] MEDS ORDERED: ONDANSETRON 4MG/2ML VIAL IV PRN (08:45)
[2021-08-12] MEDS: oxyCODONE 5MG TAB PO PRN ×2 (09:12→09:43)
[2021-08-12] MEDS ORDERED: OXYC1TAB23 PO (09:22)
[2021-08-12] MEDS ORDERED: OXYB5TAB10 PO (09:22)
[2021-08-12] MEDS ORDERED: PERCOCET 5MG/325MG TAB PO PRN (09:50)
[2021-08-12] MEDS ORDERED: oxyBUTYnin 5 MG TAB PO PRN (09:50)
[2021-08-12 10:00] VITALS: BP 141/74
== END 2021-08-12 11:33 | disposition home or self-care (01) ==
LOC: M SDC 05:57
PROVIDERS: ATTEND Urology
DX: N20.0 Calculus of kidney (principal); J44.9 Chronic obstructive pulmonary disease, unspecified; G47.33 Obstructive sleep apnea (adult) (pediatric); D50.9 Iron deficiency anemia, unspecified; K21.9 Gastro-esophageal reflux disease without esophagitis; F41.8 Other specified anxiety disorders; F32.A Depression, unspecified; G62.9 Polyneuropathy, unspecified; G89.29 Other chronic pain; G25.81 Restless legs syndrome; I44.7 Left bundle-branch block, unspecified; Z79.899 Other long term (current) drug therapy; Z88.8 Allergy status to other drugs, medicaments and biological substances; Z91.018 Allergy to other foods
CPT/HCPCS: 52356; 74420; 82365; C1769; C1894; C2617; J0131; J0690; J1100; J2250; J2405; J2765; J3010; Q9967

== ENCOUNTER → 2021-12-06 | Outpatient (CLI) | payer MEDICARE, MEDICAID ==
[~2021-12-06] MED LIST changes: +BUPIVACAINE HCL 0.5% 30ML VIAL As Ordered ONE; +ISOVUE-300 61% 50ML VIAL As Ordered ONE; +LIDOCAINE 1% MDV 20ML VIAL As Ordered ONE; +OXYB5TAB10 PO; +methylPREDNISolone 80MG/ML SUSP 1ML VIAL (J1040) As Ordered ONE
== END ==
LOC: M RAD 15:13
PROVIDERS: ATTEND Orthopaedic Surgery
DX: M16.12 Unilateral primary osteoarthritis, left hip (principal)
CPT/HCPCS: 76000; J1040; Q9967

== ENCOUNTER → 2022-02-01 | Outpatient (RCR) | payer MEDICARE, MEDICAID ==
[~2022-02-01] MED LIST changes: -BUPIVACAINE HCL 0.5% 30ML VIAL As Ordered ONE; -ISOVUE-300 61% 50ML VIAL As Ordered ONE; -LIDOCAINE 1% MDV 20ML VIAL As Ordered ONE; -methylPREDNISolone 80MG/ML SUSP 1ML VIAL (J1040) As Ordered ONE
== END ==
LOC: M PT 13:43
PROVIDERS: ATTEND Orthopaedic Surgery
DX: M16.12 Unilateral primary osteoarthritis, left hip (principal)

== ENCOUNTER → 2022-03-09 | Outpatient (CLI) | payer MEDICARE, MEDICAID | LOC: M PLAIMG 11:52 | PROVIDERS: ATTEND Physician Assistant | DX: Z87.442 Personal history of urinary calculi (principal) ==

== ENCOUNTER → 2022-03-14 | Outpatient (CLI) | payer MEDICARE, MEDICAID ==
[~2022-03-14] MED LIST changes: +ALBU8.5H INH; +D-50CAP PO; +FERR325T3 PO; +KP F1200 PO; +TRAM50TA2 PO
== END ==
LOC: M RAD 12:39
PROVIDERS: ATTEND Orthopaedic Surgery
DX: M16.12 Unilateral primary osteoarthritis, left hip (principal)

== ENCOUNTER 2022-03-27 06:04 | Inpatient (IN) | payer MEDICARE, MEDICAID ==
[~2022-03-27] VITALS: Ht 152.4 cm; Wt 68.5 kg
[2022-03-27] VITALS (7 sets, daily range): BP systolic 104–131; BP diastolic 55–62
[~2022-03-27 06:04] MED LIST changes: +ROPIVA 100MG/KETOR 15MG/EPINEPHRINE 0.3MG IN NS 50ML SYRINGE PA ONE
[2022-03-27] MEDS ORDERED: LR 1,000 ML IV SCH ×2 (06:35→12:20)
[2022-03-27] MEDS ORDERED: ceFAZolin SOD 2 GM in IV 1 EA IV ONE (06:50)
[2022-03-27] MEDS ORDERED: oxyCODONE 5MG TAB PO ONE (06:50)
[2022-03-27] MEDS ORDERED: BUPIVACAINE/EPIN 0.5% 30ML VIAL As Ordered ONE (07:12)
[2022-03-27] MEDS ORDERED: TRANEXAMIC ACID 100 MG/ML 10ML VIAL As Ordered ONE (07:12)
[2022-03-27] MEDS ORDERED: LIDOCAINE 2% 100MG/5ML SDV (FOR ANES.) As Ordered ONE (09:01)
[2022-03-27] MEDS ORDERED: ePHEDrine SULFATE 25 MG/5 ML(5MG/ML) SYRINGE As Ordered ONE (09:01)
[2022-03-27] MEDS ORDERED: ACETAMINOPHEN 1000MG 100ML IV BAG As Ordered ONE (09:01)
[2022-03-27] MEDS ORDERED: HYDROmorphone HCL 2MG/ML 1ML VIAL As Ordered ONE (09:01)
[2022-03-27] MEDS ORDERED: PHENYLephrine 500MCG 5ML (100MCG/ML) SYRINGE As Ordered ONE ×2 (09:01→11:32)
[2022-03-27] MEDS ORDERED: propofoL 200 MG/20 ML VIAL As Ordered ONE (09:01)
[2022-03-27] MEDS ORDERED: ONDANSETRON 4MG 2ML VIAL As Ordered ONE (09:01)
[2022-03-27] MEDS ORDERED: MIDAZOLAM INJ 2MG/2ML VIAL As Ordered ONE (09:01)
[2022-03-27] MEDS ORDERED: ROCURONIUM BROMIDE 50MG/5ML VIAL As Ordered ONE ×2 (09:01→10:41)
[2022-03-27] MEDS ORDERED: fentaNYL 100 MCG/2 ML INJECTION As Ordered ONE (09:01)
[2022-03-27] MEDS ORDERED: SUGAMMADEX SODIUM 500 MG/5 ML VIAL (BRIDION) As Ordered ONE (09:12)
[2022-03-27] MEDS ORDERED: TOBRAMYCIN SULF 1.2GM VIAL As Ordered ONE (11:02)
[2022-03-27] MEDS ORDERED: VANCOMYCIN 500MG/10ML VIAL As Ordered ONE (11:32)
[2022-03-27] MEDS ORDERED: ONDANSETRON 4MG 2ML VIAL IV PRN ×2 (12:20)
[2022-03-27] MEDS ORDERED: MORPHINE 2 MG/ML 1ML VIAL IV PRN (12:20)
[2022-03-27] MEDS ORDERED: oxyCODONE 5MG TAB PO PRN (12:20)
[2022-03-27] MEDS ORDERED: METOCLOPRAMIDE INJ 10MG/2ML VIAL IV PRN (12:20)
[2022-03-27] MEDS ORDERED: SENNA 8.6 MG TAB (SENOKOT) PO PRN (12:20)
[2022-03-27] MEDS: fentaNYL 100 MCG/2 ML INJECTION IV PRN ×4 (12:39→12:55)
[2022-03-27] MEDS: oxyCODONE 5MG TAB PO PRN ×3 (14:39→23:51)
[2022-03-27] MEDS: ceFAZolin SOD 2 GM in IV 1 EA IV SCH ×2 (16:12→23:50)
[2022-03-27] MEDS ORDERED: GABA-1171 PO (16:49)
[2022-03-27] MEDS ORDERED: HOME MED LIST COMPLETE! XX SCH (16:50)
[2022-03-27] MEDS: ACETAMINOPHEN TAB 650MG DOSE (2X325MG) PO SCH ×2 (17:05→23:51)
[2022-03-27] MEDS: AMITRIPTYLINE 25MG TABLET PO SCH (20:35)
[2022-03-27] MEDS: DOCUSATE SODIUM 100MG CAPSULE PO SCH (20:36)
[2022-03-28 02:02] VITALS: BP 120/56
[2022-03-28] MEDS: oxyCODONE 5MG TAB PO PRN ×3 (04:22→20:01)
[2022-03-28 06:12] LABS: HEMATOCRIT 28.1 % (36.0-47.0); HEMOGLOBIN 9.1 g/dl (12.0-15.5); MEAN CORPUSCULAR HEMOGLOBIN 32.3 pg (27.0-33.0); MEAN CORPUSCULAR HGB CONC 32.4 g/dl (32.0-36.5); MEAN CORPUSCULAR VOLUME 99.6 fl (80.0-96.0); PLATELET COUNT, AUTOMATED 165 10^3/uL (150-450); RED BLOOD COUNT 2.82 10^6/uL (4.00-5.40); WHITE BLOOD COUNT 6.6 10^3/uL (4.0-10.0)
[2022-03-28 06:28] LABS: PROTHROMBIN TIME 13.4 SECONDS (12.5-14.5)
[2022-03-28 06:42] LABS: ALBUMIN 2.8 G/DL (3.2-5.2); ALKALINE PHOSPHATASE 76 U/L (46-116); ALT/SGPT 83 U/L (7.0-40); AST/SGOT 184 U/L (<34); BILIRUBIN,TOTAL 0.4 MG/DL (0.3-1.2); BLOOD UREA NITROGEN 9 MG/DL (9-23); CALCIUM LEVEL 7.6 MG/DL (8.3-10.6); CARBON DIOXIDE LEVEL 26 MMOL/L (20-31); CHLORIDE LEVEL 109 MMOL/L (98-107); CREATININE FOR GFR 0.71 MG/DL (0.55-1.30); GLOMERULAR FILTRATION RATE > 60.0 (>45); GLUCOSE, FASTING 105 MG/DL (74-106); PHOSPHORUS LEVEL 3.1 MG/DL (2.4-5.1); SODIUM LEVEL 141 MMOL/L (136-145)
[2022-03-28] MEDS: ACETAMINOPHEN TAB 650MG DOSE (2X325MG) PO SCH ×2 (06:42→12:35)
[2022-03-28 06:53] VITALS: BP 118/55
[2022-03-28 07:51] LABS: BILIRUBIN,DIRECT 0.2 MG/DL (<0.4)
[2022-03-28] MEDS ORDERED: ASPIRIN 81MG ENTERIC TABLET PO SCH (09:00)
[2022-03-28] MEDS: DOCUSATE SODIUM 100MG CAPSULE PO SCH ×2 (09:53→21:00)
[2022-03-28] MEDS: PANTOPRAZOLE 40MG TAB (PROTONIX) PO SCH (09:53)
[2022-03-28] MEDS: ASCORBIC ACID 500 MG TAB PO SCH (09:53)
[2022-03-28] MEDS: FERROUS SULFATE 325MG TAB PO SCH (09:53)
[2022-03-28] MEDS: ESCITALOPRAM OXALATE 10 MG TAB (LEXAPRO) PO SCH (09:53)
[2022-03-28] MEDS: MULTIVITAMINS/MINERALS THERAP 1 TAB PO SCH (09:53)
[2022-03-28] MEDS: CYANOCOBALAMIN 500 MCG TAB PO SCH (09:53)
[2022-03-28] MEDS ORDERED: ONDANSETRON 4MG 2ML VIAL IV PRN (11:25)
[2022-03-28] MEDS ORDERED: PERCOCET 5MG/325MG TAB PO PRN (12:25)
[2022-03-28] MEDS ORDERED: ACETAMINOPHEN TAB 650MG DOSE (2X325MG) PO PRN (12:25)
[2022-03-28] MEDS: RIVAROXABAN 10MG TAB (XARELTO) PO SCH (12:35)
[2022-03-28] MEDS ORDERED: ALBUTEROL 90 MCG/ACT 8GM HFA INHALER INH PRN (12:50)
[2022-03-28] MEDS: MORPHINE 4 MG/ML 1ML VIAL IV PRN ×2 (13:41→22:04)
[2022-03-28 13:45] LABS: BILIRUBIN,DIRECT 0.2 MG/DL (<0.4)
[2022-03-28 13:51] LABS: ALBUMIN 3.5 G/DL (3.2-5.2); ALKALINE PHOSPHATASE 103 U/L (46-116); ALT/SGPT 119 U/L (7.0-40); AST/SGOT 271 U/L (<34); BILIRUBIN,TOTAL 0.6 MG/DL (0.3-1.2); TOTAL PROTEIN 6.3 G/DL (5.7-8.2)
[2022-03-28 14:14] VITALS: BP 115/50
[2022-03-28 19:35] LABS: HEPATITIS B SURFACE ANTIGEN NEGATIVE (NEGATIVE)
[2022-03-28 19:55] LABS: HEPATITIS B CORE ANTIBODY IGM NEGATIVE (NEGATIVE)
[2022-03-28 19:56] LABS: HEPATITIS C VIRUS ABY INDEX < 0.0 INDEX (<0.8)
[2022-03-28] MEDS: AMITRIPTYLINE 25MG TABLET PO SCH (20:59)
[2022-03-28] MEDS: SUCRALFATE 1 GM TAB PO SCH (21:00)
[2022-03-28] MEDS: GABAPENTIN 100 MG CAP PO SCH (21:00)
[2022-03-28 22:00] VITALS: BP 127/63
[2022-03-29 06:00] VITALS: BP 110/61
[2022-03-29 06:11] LABS: HEMATOCRIT 28.6 % (36.0-47.0); HEMOGLOBIN 9.3 g/dl (12.0-15.5); MEAN CORPUSCULAR HEMOGLOBIN 32.3 pg (27.0-33.0); MEAN CORPUSCULAR HGB CONC 32.5 g/dl (32.0-36.5); MEAN CORPUSCULAR VOLUME 99.3 fl (80.0-96.0); PLATELET COUNT, AUTOMATED 169 10^3/uL (150-450); RED BLOOD COUNT 2.88 10^6/uL (4.00-5.40); WHITE BLOOD COUNT 9.3 10^3/uL (4.0-10.0)
[2022-03-29] MEDS: oxyCODONE 5MG TAB PO PRN ×2 (06:37→15:43)
[2022-03-29 06:45] LABS: MAGNESIUM LEVEL 1.8 MG/DL (1.8-2.4)
[2022-03-29 06:48] LABS: ALBUMIN 2.5 G/DL (3.2-5.2); ALKALINE PHOSPHATASE 76 U/L (46-116); ALT/SGPT 58 U/L (7.0-40); AST/SGOT 87 U/L (<34); BILIRUBIN,TOTAL 0.4 MG/DL (0.3-1.2); BLOOD UREA NITROGEN 8 MG/DL (9-23); CALCIUM LEVEL 7.4 MG/DL (8.3-10.6); CARBON DIOXIDE LEVEL 24 MMOL/L (20-31); CHLORIDE LEVEL 104 MMOL/L (98-107); CREATININE FOR GFR 0.64 MG/DL (0.55-1.30); GLOMERULAR FILTRATION RATE > 60.0 (>45); GLUCOSE, FASTING 95 MG/DL (74-106); PHOSPHORUS LEVEL 2.2 MG/DL (2.4-5.1); POTASSIUM SERUM 3.8 MMOL/L (3.5-5.1); SODIUM LEVEL 136 MMOL/L (136-145); TOTAL PROTEIN 5.1 G/DL (5.7-8.2)
[2022-03-29 07:08] LABS: INR 1.15; PROTHROMBIN TIME 14.9 SECONDS (12.5-14.5)
[2022-03-29] MEDS ORDERED: FERROUS GLUCONATE 324 MG TAB PO SCH (09:00)
[2022-03-29] MEDS: FERROUS SULFATE 325MG TAB PO SCH (09:44)
[2022-03-29] MEDS: ESCITALOPRAM OXALATE 10 MG TAB (LEXAPRO) PO SCH (09:44)
[2022-03-29] MEDS: CYANOCOBALAMIN 500 MCG TAB PO SCH (09:44)
[2022-03-29] MEDS: RIVAROXABAN 10MG TAB (XARELTO) PO SCH (09:44)
[2022-03-29] MEDS: MULTIVITAMINS/MINERALS THERAP 1 TAB PO SCH (09:44)
[2022-03-29] MEDS: SUCRALFATE 1 GM TAB PO SCH (09:44)
[2022-03-29] MEDS: GABAPENTIN 100 MG CAP PO SCH (09:44)
[2022-03-29] MEDS: DOCUSATE SODIUM 100MG CAPSULE PO SCH (09:44)
[2022-03-29] MEDS: ASCORBIC ACID 500 MG TAB PO SCH (09:44)
[2022-03-29] MEDS: PANTOPRAZOLE 40MG TAB (PROTONIX) PO SCH (09:44)
[2022-03-29] MEDS: MORPHINE 4 MG/ML 1ML VIAL IV PRN (09:45)
[2022-03-29] MEDS ORDERED: ASPI81TAEC PO (11:20)
[2022-03-29] MEDS ORDERED: ASCO50TA PO (11:20)
[2022-03-29] MEDS ORDERED: XARE10TA PO (11:20)
[2022-03-29] MEDS ORDERED: ENDO5TAB PO (11:35)
[2022-03-29 14:00] VITALS: BP 108/59
[2022-04-11] MEDS ORDERED: ASPIRIN 81MG ENTERIC TABLET PO SCH (09:00)
== END 2022-03-29 16:05 | disposition home health service (06) | DRG 470 ==
LOC: M SDC 06:04 → M MS5PR 12:19 → UNDODISIN 03-29 15:00
PROVIDERS: ADMIT Orthopaedic Surgery; ATTEND Orthopaedic Surgery
PROC: BQ11ZZZ Fluoroscopy of Left Hip (ICD-10-PCS; 2022-03-27)
PROC: 8E0Y0CZ Robotic Assisted Procedure of Lower Extremity, Open Approach (ICD-10-PCS; 2022-03-27)
PROC: 0SRB0JZ Replacement of Left Hip Joint with Synthetic Substitute, Open Approach (ICD-10-PCS; principal; 2022-03-27 07:30)
DX: M16.12 Unilateral primary osteoarthritis, left hip (principal); R74.01 Elevation of levels of liver transaminase levels; J44.9 Chronic obstructive pulmonary disease, unspecified; G47.33 Obstructive sleep apnea (adult) (pediatric); D50.9 Iron deficiency anemia, unspecified; G62.9 Polyneuropathy, unspecified; F32.A Depression, unspecified; F41.9 Anxiety disorder, unspecified; G25.81 Restless legs syndrome; K21.9 Gastro-esophageal reflux disease without esophagitis; Z98.84 Bariatric surgery status; Z87.891 Personal history of nicotine dependence; Z79.899 Other long term (current) drug therapy; Z88.8 Allergy status to other drugs, medicaments and biological substances; Z91.018 Allergy to other foods

== ENCOUNTER → 2022-04-05 | Outpatient (CLI) | payer MEDICARE, MEDICAID ==
[~2022-04-05] MED LIST changes: +ASCO50TA PO; +ASPI81TAEC PO; +ENDO5TAB PO; -ROPIVA 100MG/KETOR 15MG/EPINEPHRINE 0.3MG IN NS 50ML SYRINGE PA ONE; +XARE10TA PO
== END ==
LOC: M SOG 08:06
PROVIDERS: ATTEND Orthopaedic Surgery
DX: Z47.89 Encounter for other orthopedic aftercare (principal)

== ENCOUNTER → 2022-06-07 | Outpatient (CLI) | payer MEDICARE, MEDICAID | LOC: M SOG 08:07 | PROVIDERS: ATTEND Orthopaedic Surgery | DX: Z47.1 Aftercare following joint replacement surgery (principal); Z96.642 Presence of left artificial hip joint ==

== ENCOUNTER → 2023-01-01 | Outpatient (CLI) | payer MEDICARE, MEDICAID ==
[~2023-01-01] MED LIST changes: -AMIT25TA17 PO; +AMIT25TA19 PO; -GABA-283 PO; +GABA-284 PO; -OXYB5TAB10 PO; +OXYB5TAB11 PO
== END ==
LOC: M SOG 07:53
PROVIDERS: ATTEND Orthopaedic Surgery
DX: Z96.642 Presence of left artificial hip joint (principal)

== ENCOUNTER → 2023-02-16 | Outpatient (CLI) | payer MEDICARE, MEDICAID | LOC: M SOG 11:44 | PROVIDERS: ATTEND Orthopaedic Surgery | DX: M16.12 Unilateral primary osteoarthritis, left hip (principal) ==

== ENCOUNTER → 2023-06-28 | Outpatient (CLI) | payer MEDICARE, MEDICAID ==
[~2023-06-28] MED LIST changes: -DOCU-153 PO; -OXYB5TAB11 PO; +OXYB5TAB14 PO; +STOO100C30 PO
== END ==
LOC: M SOG 13:22
PROVIDERS: ATTEND Orthopaedic Surgery
DX: Z96.642 Presence of left artificial hip joint (principal)

== ENCOUNTER → 2023-09-28 | Outpatient (CLI) | payer MEDICARE, MEDICAID ==
[~2023-09-28] MED LIST changes: +TRAM-443 PO; -TRAM37.53 PO
== END ==
LOC: M PLAIMG 13:52
PROVIDERS: ATTEND Physician Assistant
DX: N20.0 Calculus of kidney (principal)

== ENCOUNTER → 2024-01-10 | Outpatient (CLI) | payer MEDICARE, MEDICAID ==
[~2024-01-10] MED LIST changes: -TRAM-443 PO; +TRAM1TAB42 PO
== END ==
LOC: M PLAIMG 14:41
PROVIDERS: ATTEND Internal Medicine Cardiovascular Disease
DX: I34.9 Nonrheumatic mitral valve disorder, unspecified (principal); R94.31 Abnormal electrocardiogram [ECG] [EKG]

== ENCOUNTER → 2024-06-26 | Outpatient (CLI) | payer MEDICARE, MEDICAID ==
[~2024-06-26] MED LIST changes: -FLOM0.4C39 PO; +TAMS-18 PO
== END ==
LOC: M SOG 07:51
PROVIDERS: ATTEND Orthopaedic Surgery
DX: Z96.642 Presence of left artificial hip joint (principal); Z47.1 Aftercare following joint replacement surgery

== ENCOUNTER → 2024-06-27 | Outpatient (CLI) | payer MEDICARE, MEDICAID | LOC: M SOG 09:06 | PROVIDERS: ATTEND Orthopaedic Surgery | DX: Z96.642 Presence of left artificial hip joint (principal); Z47.1 Aftercare following joint replacement surgery ==

== ENCOUNTER → 2024-10-14 | Outpatient (CLI) | payer MEDICARE, MEDICAID ==
[~2024-10-14] MED LIST changes: +LEVO1INJ IV; -LEVO1INJ27 IV
== END ==
LOC: M SOG 06:51
PROVIDERS: ATTEND Physician Assistant
DX: M79.631 Pain in right forearm (principal)